=== PATIENT | female | born 1990 | race Hispanic/Latino ===

== ENCOUNTER 2016-05-27 14:57 | Inpatient (IN) | payer OTHER ==
[~2016-05-27] VITALS: Ht 160 cm; Wt 75.2 kg
[2016-05-27 16:26] LABS: MEAN CORPUSCULAR HEMOGLOBIN 29.3 pg (27.0-33.0); MEAN CORPUSCULAR HGB CONC 34.5 g/dl (32.0-36.5); MEAN CORPUSCULAR VOLUME 84.9 fl (80.0-96.0); RED CELL DISTRIBUTION WIDTH 13.5 % (11.5-14.5)
[2016-05-27 16:33] LABS: AMPHETAMINES LEVEL URINE NEGATIVE (NEGATIVE); BENZODIAZEPINES URINE NEGATIVE (NEGATIVE); COCAINE METABOLITE URINE NEGATIVE (NEGATIVE); CONTROL LINE INT CTR LINE PRESENT; METHADONE URINE NEGATIVE (NEGATIVE); OPIATES URINE NEGATIVE (NEGATIVE); TRICYCLIC ANTIDEPRESS URINE NEGATIVE (NEGATIVE)
[2016-05-27 16:34] LABS: CONTROL LINE HCG INT CTR LINE PRESENT
[2016-05-27 16:48] LABS: ALBUMIN 3.4 GM/DL (3.2-5.2); ALBUMIN/GLOBULIN RATIO 0.94 (1.00-1.93); ALKALINE PHOSPHATASE 62 U/L (45-117); ALT/SGPT 13 U/L (12-78); ANION GAP 10 MEQ/L (8-16); AST/SGOT 13 U/L (15-37); BILIRUBIN,DIRECT < 0.1 MG/DL (0.0-0.2); BILIRUBIN,TOTAL 0.2 MG/DL (0.2-1.0); BLOOD UREA NITROGEN 5 MG/DL (7-18); CARBON DIOXIDE LEVEL 23 MEQ/L (21-32); CHLORIDE LEVEL 107 MEQ/L (98-107); CREATININE FOR GFR 0.46 MG/DL (0.55-1.02); GLOMERULAR FILTRATION RATE > 60.0 (>60); GLUCOSE, FASTING 72 MG/DL (70-105); SODIUM LEVEL 140 MEQ/L (136-145)
[2016-05-27] MEDS ORDERED: ZOLO50TA PO (18:08)
[2016-05-27] MEDS ORDERED: UNIS25TA2 PO (18:08)
[2016-05-27] MEDS ORDERED: PRENTAB16 PO (18:08)
--- NOTE | 2016-05-27 18:10 | EDDOCDS ---
Nurse's Notes [facility] Name: Gina Taveras Age: 25 yrs Sex: Female : 1990 Arrival Date: 05/27/2016 Time: 14:[address] MD: Diagnosis: Major depressive disorder, single episode; state;Suicidal ideations Presentation: 05/27 15:13 Presenting complaint: Patient states: "You need to call the [place] and tell them mb9 what is going on. My is in the [employer] and needs to be brought home". When questioned as to why she is in the ER pt states, "I'm depressed and having SI". pt reports several plans. pt reports she has easy access to knives and that her is a knife boat fueler. pt reports a history of depression and a history of cutting in high school. pt appears to be laughing and joking in the room on the cell phone when security aide went in to change pt. Mental Health Triage Level: Level 2: The patient displays active suicidal ideations. Adult Sepsis Screening: The patient does not have new or worsening altered mentation. Patient's respiratory rate is less than 22. Systolic blood pressure is greater than 100. Patient has a qSOFA score of 0- Negative Sepsis Screen. Suicide/Homicide risk assessment- The patient admits to and/or has been reported to be having suicidal ideations. Status: The patient is a dependent. Transition of care: patient was received from a primary care office; . 15:13 Acuity: MARY Level 3 mb9 15:13 Method Of Arrival: Ambulance mb9 Triage Assessment: 15:13 General: Appears in no apparent distress, comfortable, Behavior is appropriate for age, mb9 cooperative. Pain: Denies pain. Pt Declines HIV testing. Respiratory: Airway is patent Respiratory effort is even, unlabored. 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 Zoloft 100 mg Oral tab 1 tab once daily 2. Vitamin Oral tab 1 tab once daily 3. sleep aide Unknown Unknown prn OTC medication - PMHx: Depression; Migraine Headaches; - PSHx: csection; - Social history: Smoking status: Patient states former smoker of tobacco. No barriers to communication noted, The patient speaks fluent Stateless. - Family history: No immediate family members are acutely ill. - : The pt / caregiver states he / she is not on anticoagulants. Home medication list is obtained from the patient. - Exposure Risk Screening:: None identified. Screenin:10 Screening information is obtained from the patient. Fall risk: At risk due to age. mb9 Assistance ADL's: requires no assistance with activities of daily living. Abuse/DV Screen: The patient / caregiver reports he/she is: not in a situation that causes fear, pain or injury. Nutritional screening: No deficits noted. Advance Directives: There is no active DNR order. home support is adequate. Assessment: 17:07 Reassessment: Patient appears in no apparent distress at this time. General: Appears in mb9 no apparent distress, Behavior is appropriate for age, cooperative. Respiratory: Airway is patent. Mental Health Eval: 16:27 Mental health consult is initiated at 16:00. Status: The patient is a ms dependent. [facility] Behavioral Health: The patient is not an established patient of [facility] Behavioral Health. Referral Information: Evaluation referral is generated by the patient's therapist Adrian ANGELA. The patient was referred for evaluation because Pt. states she came to ER because she is depressed and has been having suicidal thoughts. She denies having a plan to kill herself but states several plans have been going through her head. Pt. states that she is approx 15 weeks and has a two and three yr. old children at home, currently in car of her sister who resides with them. Pt. states that depression worsened and suicidal thoughts began after her left for training 5 days ago. She reports decreased sleep and appetite and states she has not been keeping up with the cooking and cleaning. Pt. reports that since she found out she was , the Zoloft she is prescribed has been decreased from 100 mg to 50 mg. She reports she has been taking Zoloft for about 2 years. Pt. reports history of self mutilation by cutting, most recently five days ago with superficial cuts made to right leg(above knee) with a razor blade. 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 She reports two suicide attempts as a teenager by taking Ibuprofen overdose.. Subjective: Delusions are denied. Patient's mood is anxious, Hallucinations are denied. Subjective: Pt. reports she is from [place], moved here with her spouse in November 2015. Mental Health history: anxiety, depression, Mental Health Admissions: MH admissions in [place] in August 2015 and another in early 2015 Current Outpatient Mental Health Services: Psychiatrist / Agency: [facility], pt. reports she has had one visit there. Patient presents to Emergency Department with the following symptoms within the past 2 weeks: anxiety, decreased appetite, depressed mood, sleep disturbance - insomnia, suicidal ideation with no plan. Substance abuse: Pt denies. Mental status exam: Patients appearance is appropriate, Patient's behavior is cooperative, Speech is normal. Affect is labile. Mood is anxious. Hallucinations are denied. Appetite is poor. Memory is good. Energy level is normal. Content of thought is normal. Thought process is intact. Cognitive level is oriented to person, place, time and situation Patient's insight is fair. Judgement is fair. Rapport with interviewer is good. Suicidal Ideation is present with no specific plan. Homicidal ideation is denied. 17:11 Disposition: Medically cleared for disposition by Daryl Henson MD Psychiatric Consult ms is performed by phone with Dr Angel Gallegos. [facility] Admission Criteria: The patient is experiencing suicidal ideation. The patient requires continuous observation and/or control to protect self, others or property. Legal Status: Patient's legal status will be Emergency admission: . 17:43 [place] Safe Act: [place] Safe Act is applicable to this patient. The patient poses a risk ms to self or other and the Nursing Internet Researcher has been notified. He/She will enter the patient's data. DSM-V Differential Diagnosis: Unspecified Depressive Disorder (F32.9). Insurance Pre-Certification: Not Required. Awaiting: transfer to [facility]. Vital Signs: 15:13 BP 131 / 82; Pulse 98; Resp 17; Temp 97.8; Pulse Ox 99% ; Pain 0/10; mb9 17:46 BP 115 / 59; Pulse 86; Resp 16; Temp 98.3(O); Pulse Ox 99% on R/A; Pain 0/10; sew Vitals: 15:13 Log In Time N/A - ambulance arrival. mb9 ED Course: 14:59 Patient visited by Warren Martínez, Reg. pm4 14:59 Patient moved to [facility] pm4 15:03 Patient moved to [facility] mb9 15:08 Daryl Henson MD is Attending Physician. br1 15:17 Triage Initiated mb9 15:21 Patient visited by Daryl Henson MD. br1 15:37 Pt greeted and oriented to ED. Patient advised of names of staff involved in care, sew location of call carballo, wait times and NPO status. Patient has correct armband on for positive identification. Placed in psych safe attire. Bed in low position. Call light in reach. Side rails up X 1. Security observing. Property removed, inventory done, secured in belongings bag- placed in locked locker. Placed in locker 2. secure belongings bag, Secure bag Number [id number], placed in ED safe. Verbal reassurance given. Psych Safety Check: Location: Psych Room. Visual Assessment: Cooperative. 15:38 Patient visited by Mirian Manley. sew 15:41 Patient visited by Mirian Manley. sew 15:41 Warm blanket given. Pillow given. sew 15:55 [facility] Payment Agreement was scanned into Coffee[employer] and attached to record. zo 16:05 Psych Safety Check: Location: Psych Room. Visual Assessment: Cooperative. sew 16:05 Acetaminophen Level Sent. sew 16:05 Basic Metabolic Profile Sent. sew 16:05 Complete Blood Count Sent. sew 16:05 Drug Eval Toxicology ED Only Sent. sew 16:05 Ethyl Alcohol (ethanol) Sent. sew 16:05 HCG,Serum Qualitative Sent. sew 16:05 Liver Profile Sent. sew 16:05 Salicylate Level Sent. sew 16:05 Thyroid Stimulating Hormone Sent. sew 16:05 Labs drawn. (by ED staff). Sent per order to lab. Urine collected. Clean catch sew specimen. Urine specimen sent to lab. 16:06 Patient visited by Mirian Manley. sew 16:34 Patient visited by Mirian Manley. sew 16:34 Psych Safety Check: Location: Psych Room. Visual Assessment: Sleeping. sew 17:07 Psych Safety Check: Location: Psych Room. Visual Assessment: Sleeping, Cooperative. mb9 17:10 Patient visited by Juan Craig RN. mb9 17:10 The patient / caregiver is instructed regarding the plan of care and ED course. mb9 17:10 No IV's were initiated during this patient's visit. No procedures done that require mb9 assistance. 17:18 Angel Gallegos is Hospitalizing Provider. br1 17:27 Other: [facility] Note was scanned into CoffeeTable and attached to record. jl 17:30 Patient visited by Mirian Manley. sew 17:30 Psych Safety Check: Location: Psych Room. Visual Assessment: Sleeping, Cooperative. sew 17:42 Patient visited by Mirian Manley. sew 17:42 Psych Safety Check: Location: Psych Room. Visual Assessment: Cooperative. sew 17:42 [facility] Legal paperwork was scanned into [employer] and attached to record. jl 17:47 Patient visited by Mirian Manley. sew 17:54 Patient visited by Mirian Manley. sew 17:54 Psych Safety Check: Location: Psych Room. Visual Assessment: Cooperative. sew Attachments: 17:42 [facility] Legal paperwork jl Order Results: Lab Order: Acetaminophen Level; SPEC'M 05/27/16 15:54 Test: ACETAMINOPHEN LEVEL; Value: < 2.0; Range: 10.0-30.0; Abnormal: Below low normal; Units: UG/ML; Status: F Lab Order: Basic Metabolic Profile; SPEC'M 05/27/16 15:54 Test: GLUCOSE, FASTING; Value: 72; Range: 70-105; Units: MG/DL; Status: F Test: BLOOD UREA NITROGEN; Value: 5; Range: 7-18; Abnormal: Below low normal; Units: MG/DL; Status: F Test: CREATININE FOR GFR; Value: 0.46; Range: 0.55-1.02; Abnormal: Below low normal; Units: MG/DL; Status: F Test: SODIUM LEVEL; Range: 136-145; Units: MEQ/L; Status: I Test: POTASSIUM SERUM; Range: 3.5-5.1; Units: MEQ/L; Status: I Test: CHLORIDE LEVEL; Range: 98-107; Units: MEQ/L; Status: I Test: CARBON DIOXIDE LEVEL; Range: 21-32; Units: MEQ/L; Status: I Test: ANION GAP; Range: 8-16; Units: MEQ/L; Status: I Test: CALCIUM LEVEL; Range: 8.5-10.1; Units: MG/DL; Status: I Test: GLOMERULAR FILTRATION RATE; Value: > 60.0; Range: >60; Status: F Test: SODIUM LEVEL; Value: 140; Range: 136-145; Units: MEQ/L; Status: F Test: POTASSIUM SERUM; Value: 4.0; Range: 3.5-5.1; Units: MEQ/L; Status: F Test: CHLORIDE LEVEL; Value: 107; Range: 98-107; Units: MEQ/L; Status: F Test: CARBON DIOXIDE LEVEL; Value: 23; Range: 21-32; Units: MEQ/L; Status: F Test: ANION GAP; Value: 10; Range: 8-16; Units: MEQ/L; Status: F Test: CALCIUM LEVEL; Value: 9.0; Range: 8.5-10.1; Units: MG/DL; Status: F Test Note: ; Units are mL/min/1.73 m2 Chronic Kidney Disease Staging per NKF: Stage I & II GFR >=60 Normal to Mildly Decreased Stage III GFR 30-59 Moderately Decreased Stage IV GFR 15-29 Severely Decreased Stage V GFR <15 Very Little GFR Left ESRD GFR <15 on DESIGN ENGINE[employer]ODU[employer] Lab Order: Complete Blood Count; SPEC'M 05/27/16 15:54 Test: WHITE BLOOD COUNT; Value: 11.0; Range: 4.0-10.0; Abnormal: Above high normal; Units: K/mm3; Status: F Test: RED BLOOD COUNT; Value: 4.42; Range: 4.00-5.40; Units: M/mm3; Status: F Test: HEMOGLOBIN; Value: 13.0; Range: 12.0-16.0; Units: g/dl; Status: F Test: HEMATOCRIT; Value: 37.5; Range: 36.0-47.0; Units: %; Status: F Test: MEAN CORPUSCULAR VOLUME; Value: 84.9; Range: 80.0-96.0; Units: fl; Status: F Test: MEAN CORPUSCULAR HEMOGLOBIN; Value: 29.3; Range: 27.0-33.0; Units: pg; Status: F Test: MEAN CORPUSCULAR HGB CONC; Value: 34.5; Range: 32.0-36.5; Units: g/dl; Status: F Test: RED CELL DISTRIBUTION WIDTH; Value: 13.5; Range: 11.5-14.5; Units: %; Status: F Test: PLATELET COUNT, AUTOMATED; Value: 197; Range: 150-450; Units: k/mm3; Status: F Lab Order: Drug Eval Toxicology ED Only; SPEC'M 05/27/16 15:43 Test: AMPHETAMINES LEVEL URINE; Value: NEGATIVE; Range: NEGATIVE; Status: F Test: BARBITURATES URINE; Value: NEGATIVE; Range: NEGATIVE; Status: F Test: BENZODIAZEPINES URINE; Value: NEGATIVE; Range: NEGATIVE; Status: F Test: CANNABINOIDS URINE; Value: NEGATIVE; Range: NEGATIVE; Status: F Test: COCAINE METABOLITE URINE; Value: NEGATIVE; Range: NEGATIVE; Status: F Test: METHADONE URINE; Value: NEGATIVE; Range: NEGATIVE; Status: F Test: OPIATES URINE; Value: NEGATIVE; Range: NEGATIVE; Status: F Test: TRICYCLIC ANTIDEPRESS URINE; Value: NEGATIVE; Range: NEGATIVE; Status: F Test Note: ; ALL PRESUMPTIVE POSITIVE FINDINGS ARE UNCONFIRMED NORMAL VALUES THRESHOLD IN NG/ML AMPHETAMINES 1000 METHAMPHETAMINES 1000 BARBITURATES 300 BENZODIAZEPINES 300 CANNABINOIDS (THC) 50 COCAINE METABOLITE 300 METHADONE 300 OPIATES 300 PHENCYCLIDINE 25 TRICYCLIC ANTIDEPRESSANTS 1000 RESULTS ARE FOR MEDICAL PURPOSES ONLY. ALL URINE SPECIMENS WILL BE SAVED FOR 3 DAYS. IF CONFIRMATION OF A PRESUMPTIVE POSTIVE SCREEN RESULT IS DESIRED, CALL CHEMISTRY ([phone]) AND REQUEST URINE TO BE SENT TO REFERENCE LAB. FOR A LIST OF CLOSELY RELATED COMPOUNDS PLEASE CALL THE LAB. Lab Order: Ethyl Alcohol (ethanol); SPEC'M 05/27/16 15:54 Test: ETHYL ALCOHOL (ETHANOL); Value: < 0.003; Range: 0.000-0.010; Units: %; Status: F Lab Order: HCG,Serum Qualitative; SPEC'M 05/27/16 15:54 Test: HCG, SERUM QUALITATIVE; Value: POSITIVE; Range: NEGATIVE; Abnormal: Abnormal; Status: F Lab Order: Liver Profile; SPEC'M 05/27/16 15:54 Test: AST/SGOT; Value: 13; Range: 15-37; Abnormal: Below low normal; Units: U/L; Status: F Test: ALT/SGPT; Value: 13; Range: 12-78; Units: U/L; Status: F Test: ALKALINE PHOSPHATASE; Value: 62; Range: 45-117; Units: U/L; Status: F Test: BILIRUBIN,TOTAL; Value: 0.2; Range: 0.2-1.0; Units: MG/DL; Status: F Test: BILIRUBIN,DIRECT; Value: < 0.1; Range: 0.0-0.2; Units: MG/DL; Status: F Test: TOTAL PROTEIN; Value: 7.0; Range: 6.4-8.2; Units: GM/DL; Status: F Test: ALBUMIN; Value: 3.4; Range: 3.2-5.2; Units: GM/DL; Status: F Test: ALBUMIN/GLOBULIN RATIO; Value: 0.94; Range: 1.00-1.93; Abnormal: Below low normal; Status: F Lab Order: Salicylate Level; SPEC'M 05/27/16 15:54 Test: SALICYLATE LEVEL; Value: < 1.7; Range: 5.0-30.0; Abnormal: Below low normal; Units: MG/DL; Status: F Lab Order: Thyroid Stimulating Hormone; SPEC'M 05/27/16 15:54 Test: THYROID STIMULATING HORMONE; Value: 0.995; Range: 0.358-3.740; Units: uIU/ML; Status: F Outcome: 17:18 Decision to Hospitalize by Provider. br1 18:08 Discharge Assessment: Patient awake, alert and oriented x 3. No cognitive and/or mb9 functional deficits noted. Patient verbalized understanding of disposition instructions. patient administered narcotics - no. The following High Risk Discharge criteria are identified: None. Admitted to Psych accompanied by tech. Condition: good Condition: stable Condition: improved. No special radiology studies were completed. 18:09 Patient left the ED. mb9 Signatures: Willard Perales, PSA PSA Bee Baugh, PSA PSA Arnel Miller Brian, MD MD br1 Mirian Manley Michael, RN RN mb9 Warren Martínez, Reg Reg pm4 Corrections: (The following items were deleted from the chart) 17:14 16:27 Referral Information: Evaluation referral is generated by the patient himself / ms herself. The patient was referred for evaluation because Pt. states she came to ER because she is depressed and has been having suicidal thoughts. She denies having a plan to kill herself but states several plans have been going through her head. Pt. states that she is approx 15 weeks and has a two and three yr. old children at home, currently in car of her sister who resides with them. Pt. states that depression worsened and suicidal thoughts began after her left for training 5 days ago. She reports decreased sleep and appetite and states she has not been keeping up with the cooking and cleaning. Pt. reports that since she found out she was , the Zoloft she is prescribed has been decreased from 100 mg to 50 mg. She reports she has been taking Zoloft for about 2 years. Pt. reports history of self mutilation by cutting, most recently five days ago with superficial cuts made to right leg(above knee) with a razor blade. 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 She reports two suicide attempts as a teenager by taking Ibuprofen overdose.. ms MTDD
--- NOTE | 2016-05-27 18:10 | EDDOCDS ---
Physician Documentation [facility] Name: Gina Taveras Age: 25 yrs Sex: Female : 1990 Arrival Date: 05/27/2016 Time: 14:57 Bed [facility] Private MD: Disposition: 05/27/16 17:18 Hospitalization ordered by Angel Gallegos for Inpatient Admission. Preliminary diagnosis are Major depressive disorder, single episode, state, Suicidal ideations. - Bed requested for Admit. - Status is Inpatient Admission. mb9 - Condition is Stable. - Problem is new. - Symptoms are unchanged. Historical: - Allergies: No known drug Allergies; - Home Meds: 1. Zoloft 100 mg Oral tab 1 tab once daily 2. Vitamin Oral tab 1 tab once daily 3. sleep aide Unknown Unknown prn OTC medication - PMHx: Depression; Migraine Headaches; - PSHx: csection; - Social history: Smoking status: Patient states former smoker of tobacco. No barriers to communication noted, The patient speaks fluent Uzbek. - Family history: No immediate family members are acutely ill. - : The pt / caregiver states he / she is not on anticoagulants. Home medication list is obtained from the patient. - Exposure Risk Screening:: None identified. 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 br1 15:21 Consult PFS/PSA/Blasting Machine Operator: Patient's case requires discussion with on-call br1 Psychiatrist ordered. 15:21 PSA/PFS to call Nursing Appraiser Personal Property, to enter patient data on [place] Safe Act if patient br1 involuntarily admitted or transferred for SI or HI ordered. 15:21 Confirm accurate psychiatric medication list and times of last dosage ordered. br1 15:21 Detain Pt Until Medically/PFS Cleared ordered. br1 15:21 REGULAR DIET PLASTIC CASTILLO+DIET ordered. EDMS 15:21 Acetaminophen Level Ordered. EDMS 15:21 Basic Metabolic Profile Ordered. EDMS 15:21 Complete Blood Count Ordered. EDMS 15:21 Drug Eval Toxicology ED Only Ordered. EDMS 15:21 Ethyl Alcohol (ethanol) Ordered. EDMS 15:22 HCG,Serum Qualitative Ordered. EDMS 15:22 Liver Profile Ordered. EDMS 15:22 Salicylate Level Ordered. EDMS 15:22 Thyroid Stimulating Hormone Ordered. EDMS 15:50 Financial registration complete. zo 15:51 Consult PFS/PSA/Blasting Machine Operator complete. ms 15:51 Consult PFS/PSA/Blasting Machine Operator: Patient's case requires discussion with on-call ms Psychiatrist complete. 15:51 PSA/PFS to call Nursing Appraiser Personal Property, to enter patient data on [facility] Safe Act if patient ms involuntarily admitted or transferred for SI or HI complete. 15:55 [facility] Payment Agreement was scanned into [email or web address] and attached to record. zo 16:52 Acetaminophen Level Reviewed. br1 16:52 Basic Metabolic Profile Reviewed. br1 16:52 Complete Blood Count Reviewed. br1 16:52 HCG,Serum Qualitative Reviewed. br1 16:52 Liver Profile Reviewed. br1 16:52 Salicylate Level Reviewed. br1 16:52 Drug Eval Toxicology ED Only Reviewed. br1 16:52 Ethyl Alcohol (ethanol) Reviewed. br1 16:52 Thyroid Stimulating Hormone Reviewed. br1 16:53 Consult PFS/PSA/Socail Worker: Cleared medically for eval ordered. br1 16:58 Consult PFS/PSA/Socail Worker: Cleared medically for eval complete. ms 17:27 Other: [facility] Note was scanned into [employer] and attached to record. jl 17:42 [facility] Legal paperwork was scanned into [email or web address] and attached to record. jl 17:42 Admit to IMHU: ordered. EDMS 17:45 REGULAR DIET ordered. EDMS Signatures: Dispatcher [employer] EDMS Diaz, Willard, PSA PSA viktoriya Aburto, Bee, PSA PSA ms Arnel Terry Brian, MD MD br1 Juan Craig RN RN mb9 The chart was reviewed and I authenticate all verbal orders and agree with the evaluation and treatment provided.Attachments: 15:55 [facility] Payment Agreement zo MTDD
[2016-05-27] MEDS: SERTRALINE HCL 50 MG TAB PO SCH (22:08)
[2016-05-27] MEDS: PRENATAL VITAMIN TAB PO SCH (22:08)
[2016-05-28 06:22] VITALS: BP 118/69
--- NOTE | 2016-05-28 10:47 | HPEPDOC ---
Medical History and Physical Date of Admission May 27, 2016 at 17:37 History and Physical PCP: Rose Mary ATTENDING: Dr. Vaughn Lee HPI: 25yoF admitted to COUNTS INCLUDE 234 BEDS AT THE [facility] for unspecified depressive disorder, being medically examined today. Patient is currently 15 weeks . He is followed by Augusta UNIFORM ROOM ATTENDANT. She currently has no complaints or concerns. She states she has been feeling well. Eating and drinking well. No nausea or vomiting. Denies any fevers, chills, weakness, fatigue, [place], CP, SOB, cough, palpitations, abdominal pain, N/V/D or changes in bowel or bladder habits. PMHx: Depression History of self-mutilation Migraine headache Insomnia PSHX: SOCHX: Resides in: [facility] Marital Status: Kids: 2 Employment: Unemployed Tobacco use: Quit 03/01 ETOH: Denies Illicit Drugs: Marijuana in teens IV Drug Use: Denies Tattoos done unprofessionally: Denies FAMHX: Mother: Alive, depression Father: Alive, well Siblings: Alive, history of benign brain tumor Children: Alive, well Unexpected deaths due to medical reasons: None. ROS: As noted in HPI, otherwise 11pt ROS of systems reviewed and remarkable for LMP /16. Pt states 15 wk , following with Nilson UNIFORM ROOM ATTENDANT. PE: GEN: 25yoF, appears stated age. Well-nourished, well developed. No acute distress. Alert and oriented x 3. Pleasant, interactive. HEENT: Normocephalic, atraumatic. Pupils are equal, round, and reactive to light. Extraocular movements are intact. No nystagmus appreciated. Sclera are nonicteric. Conjunctiva without injection. Nose midline. Nasal turbinates without bogginess. EACs both patent BL. TMs both visualized and mac with good cone of light, no bulging or erythema. No facial asymmetry. Moist mucous membranes. Dentition fair. Pharynx pink and moist, no cobblestoning. Neck supple , trachea midline. No lymphadenopathy or thyromegaly appreciated. CHEST: Regular rate and rhythm, +S1, +S2 LUNGS: Clear to auscultation bilaterally. No wheezes, rales, or rhonchi. Breathing appears symmetric and easy. Patient is speaking in full sentences. No accessory muscle use. ABD: Round, soft, non-tender, non-distended. +Bowel sounds throughout. No rebound or guarding. No costovertebral angle tenderness. EXT: Pulses 2+ bilaterally dorsalis pedis and radial. No lower extremity edema appreciated. SKIN: [place], dry, warm. Capillary refill <2sec. No rashes. NEURO: Alert and oriented x 3. Cranial nerves III-XII are intact. No focal deficits appreciated. EKG: pending. A&P: 25yoF admitted to COUNTS INCLUDE 234 BEDS AT THE [facility] for unspecified depressive disorder 1. Psych. Plan per Psychiatry. Obtain baseline EKG to assure the safety of psychiatric medications as they can prolong the QT interval. 2. . Continue vitamin. Continue follow-up with Raghav Devine OB/ MACHINE PAN GREASER. 3. History of Migraine headache. Tylenol as needed. 4. Follow up with PCP on discharge. Rose Mary. 5. Leukocytosis. Patient is afebrile. Asymptomatic. Recheck CBC. 6. Staff member present throughout exam MOISE Thibodeaux. Vital Signs Vital Signs Label Value Date Time Patient Temperature 97.0 degrees F 05/28/16621 Temperature Source Tympanic 05/28/16 06 Pulse 105 05/28/16 06 Respiratory Rate 20 bpm 05/28/16 0622 Blood Pressure Assessment 118/69 (85) 05/28/16 0622 Laboratory Data Labs 24H Laboratory Tests 2 05/27/16 15:43: Urine Amphetamine Level NEGATIVE, Urine Benzodiazepines Screen NEGATIVE, Urine Cannabinoids NEGATIVE, Urine Cocaine Metabolite NEGATIVE, Urine Opiates Screen NEGATIVE, Urine Barbiturates, Qualitative NEGATIVE, Urine Methadone Screen NEGATIVE, Urine Tricyclic Antidepressants NEGATIVE 05/27/16 15:54: Acetaminophen Level < 2.0L, Aspartate Amino Transf (AST/SGOT) 13L, Alanine Aminotransferase (ALT/SGPT) 13, Alkaline Phosphatase 62, Total Bilirubin 0.2, Direct Bilirubin < 0.1, Albumin 3.4, Albumin/Globulin Ratio 0.94L, Anion Gap 10 , Calcium Level 9.0, Ethyl Alcohol Level < 0.003, Glomerular Filtration Rate > 60.0, Human Chorionic Gonadotropin, Qual POSITIVEA, Salicylates Level < 1.7L, Thyroid Stimulating Hormone (TSH) 0.995, Total Protein 7.0 CBC/BMP Laboratory Tests 05/27/16 15:54 Red Blood Count 4.42, Mean Corpuscular Volume 84.9, Mean Corpuscular Hemoglobin 29.3, Mean Corpuscular Hemoglobin Concent 34.5, Red Cell Distribution Width 13.5 Home Medications Scheduled Multivitamins/ ( Complete 14-0.4 mg) 1 Tab Tab 1 TAB PO QHS Sertraline Hcl (Zoloft) 50 Mg Tab 50 MG PO QHS Scheduled PRN (Unisom) 25 Mg Tab 25 MG PO QHS PRN PRN SLEEP Allergies Coded Allergies: No Known Allergies (Unverified , 05/27/16) Iva Rueda May 28, 2016 10:47 Iva Rueda May 28, 2016 10:47
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
[2016-05-28 18:00] VITALS: BP 119/65
[2016-05-28] MEDS: SERTRALINE HCL 50 MG TAB PO SCH (20:29)
[2016-05-28] MEDS: PRENATAL VITAMIN TAB PO SCH (20:29)
[2016-05-29 06:16] VITALS: BP 138/63
[2016-05-29 06:58] LABS: MEAN CORPUSCULAR HEMOGLOBIN 30.7 pg (27.0-33.0); MEAN CORPUSCULAR HGB CONC 34.7 g/dl (32.0-36.5); MEAN CORPUSCULAR VOLUME 88.4 fl (80.0-96.0); RED CELL DISTRIBUTION WIDTH 12.9 % (11.5-14.5); WHITE BLOOD COUNT 10.9 K/mm3 (4.0-10.0)
--- NOTE | 2016-05-29 09:47 | ECGEPIP ---
Stationary ECG Study [facility] Test Date: 2016-05-28 Pat Name: BECKY TABOR Department: Room: [place] [address] Gender: F Stock Buyer: SIA : 1990 Requested By: Iva Rueda Order Number: [id number] Reading MD: Vaughn Lee Measurements Intervals [place] Rate: 99 P: 45 NE: 131 QRS: 62 QRSD: 102 T: 35 QT: 344 QTc: 442 Interpretive Statements SINUS RHYTHM Comparison tracing not on file Electronically Signed On 05-29-2016 9:47:21 EST by Vaughn Lee
[2016-05-29] MEDS: ACETAMINOPHEN TAB 650MG DOSE (2X325MG) PO PRN ×2 (11:39→19:15)
--- NOTE | 2016-05-29 16:28 | IPNPDOC ---
[facility] Progress Note Progress Note DATE OF SERVICE: 05/29/16 HISTORY OF THE PRESENT ILLNESS: Patient was seen today to assess treatment progress on inpatient unit. Patient was observed to be sleeping in bed between groups but was easily roused and sat up on the side of bed to meet with sba underwriter. Patient reports reduced symptoms of anxiety and depression denies audiovisual hallucinations, denies suicidal and homicidal ideation, denies urge to engage in self-injurious behavior. Pocket Grinder Operator inquired as to discharge plans to which patient responded by stating she plans to discharge to home with children. When asked about removing knives from home prior to discharge patient stated "I don' t know." Patient indicates she has been in contact with her sister and her children, denies safety concerns related to children sister's care. Patient was asked to consider ways to discharge which would not put her at risk of being able to care for herself, her unborn child, or her children prior to her coming home from [facility]. Patient indicates she has been attending groups and finds them helpful, spends time in her room when not in groups. Patient indicates she is sleeping fine, denies nightmares, denies physical pain, notes appetite has improved and she has been eating regularly and adequately. Patient continues to take Zoloft 50 mg po q hs and states medication is working well, denies need for dosing adjustment, denies medication side effects. Patient makes no request for [facility] to be contacted to arrange 's return home today. 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 Patient began taking Zoloft approximately 2 years ago and states had been taking 100 mg po q hs until discovering she is , notes she and PCM agreed to dose reduction to 50 mg po q hs. Patient indicates she wants to continue taking medication. Potential risks and side effects of taking psychotropic medication while were again reviewed with patient who verbalizes understanding and notes she has also discussed potential risks with PCM who is prescriber and OB/ ASSOCIATE EMBALMER/FUNERAL DIRECTOR. Addendum: Pocket Grinder Operator contacted patient's PCM, Capt. Tran ([phone]), on the [facility], who verified the patient is currently being prescribed Zoloft 50 mg po q hs by him, had been taking 100 mg po q hs intermittently with good effect prior to discovering she was . Capt. Tran indicated the patient was also offered Prozac which she declined. Capt. Tran indicated he is in agreement with patient taking Zoloft and stated he has "absolutely no problem" with Zoloft dose increase to 100 mg po q hs if needed/desired by patient. Capt. Tran was made aware of the events which led to patient's current hospitalization and was also informed of patient's request for the [facility] to be contacted for her to be returned from [facility]. Capt. Tran indicated that soldiers are generally recalled from [facility] "only in dire situations." VITAL SIGNS: See below LABORATORY DATA: Results from WBCs remain elevated. PA is addressing, patient is asymptomatic. RBC, Hgb, HCT low. On admission elevated WBCs. Low BUN, creatinine , AST, albumin/globulin ratio. UDS negative on admission. HCG positive, patient reports she is 15 weeks . EKG 05/28/16 SINUS RHYTHM MENTAL STATUS EXAMINATION: Patient is a 25-year old female, who is pleasant, cooperative, disheveled dressed in hospital clothing, appears stated age who presents with childlike manner Speech: Is normal rate, rhythm, volume, mild rambling at times when talking about and children Thought processes: Clear, generally goal-directed Rate of thoughts: Within normal limits. Thought content: Logical, denies suicidal and homicidal ideation, denies audiovisual hallucinations and other psychotic symptoms, denies obsessions and compulsions Abstract reasoning: Appears limited Associations: Intact. Abnormal or psychotic thoughts: Lisa hallucinations, Delusions, Preoccupation with violence, Homicidal or suicidal ideation, and Obsessions. Judgment: Poor Insight: Poor Oriented to: Time, place and person. Recent and Remote Memory: Intact. Attention Span and Concentration: Fair. Language: Normal. Fund of knowledge: Adequate. 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 Patient remains superficially bright and engages with sba underwriter on superficial level, minimizes events which led to her current hospitalization. Patient indicates medication remains effective and denies need for dosing adjustment, further denies medication side effects. Patient remains childlike in interactional style and continues to display lack of insight. Patient has begun attending some groups, indicates she is comfortable on the unit, and is able to effectively engage in the safety planning process and verbalizes awareness of how to access supportive services on the unit if needed. Will continue Zoloft at current dose to address symptoms of anxiety and depression and will continue to monitor for medication effectiveness, side effects, and need for dosing adjustment. Patient reiterates discharge plan is to return to home where she lives with her children and her , adds she intends to return to [facility] and MILL CRANE OPERATOR and outpatient behavioral health for ongoing psychotherapy and medication management services. Will continue to observe patient on inpatient unit to ensure positive response to medication, patient safety, and patient's readiness for discharge. Discharge coordination will involve patient and support system to evaluate plausibility of discharge plan and to devise plan which will provide adequate support to patient and family. DIAGNOSES: Major depressive disorder, recurrent, moderate, Rule out pervasive developmental disorder, rule out intellectual disorder. depression by history MANAGEMENT PLAN: Continue Zoloft 50 mg po q am, continue to evaluate need for dose increase Consult with PCM - completed 05/29/16 Maintain safety precautions Patient to attend groups and participate in unit programming to develop coping strategies Engage patient in discharge planning process and arrange meeting with command to evaluate safe discharge planning when appropriate Patient to follow up with [place] PCM and MILL CRANE OPERATOR upon discharge Vital Signs/I&O Vital Signs Date Time Temp Pulse Resp B/P Pulse Ox O2 Delivery O2 Flow Rate FiO2 05/29/16 06:16 96.4 78 18 138/63 05/27/16 18:15 99 Room Air Laboratory Data CBC/BMP Laboratory Tests 05/29/16 06:17 Red Blood Count 3.77 L, Mean Corpuscular Volume 88.4, Mean Corpuscular Hemoglobin 30.7, Mean Corpuscular Hemoglobin Concent 34.7, Red Cell Distribution Width 12.9 Current Medications Current Medications Acetaminophen (Tylenol) 650 mg Q6HP PRN PO HEADACHE or DISCOMFORT Last administered on 05/29/16t 11:39; Start 05/27/16 at 19:00; Stop 06/26/16 at 18:59 Home Med (Med Rec Complete!) ASDIRECTED XX ; Start 05/27/16 at 18:15; Stop 04/02 at 18:15; Status DC Prenat Multivit/ [place]/Iron/Folic Ac ( Rx) 1 tab QPM PO Last administered on 05/28/16 20:29; Start 05/27/16 at 21:00; Stop 06/26/16 at 20:59 Sertraline HCl (Zoloft) 50 mg QHS PO Last administered on 05/28/16 20:29; Start 05/27/16 at 21:00; Stop 06/26/16 at 20:59 Allergies Coded Allergies: No Known Allergies (Unverified , 05/27/16) Lisa Loco May 29, 2016 16:28 Allergies Coded Allergies: No Known Allergies (Unverified , 05/27/16) Lisa Loco May 29, 2016 16:28
[2016-05-29 18:00] VITALS: BP 107/56
--- NOTE | 2016-05-29 19:10 | EDDOCDS ---
Physician Documentation [facility] Name: Gina Taveras Age: 25 yrs Sex: Female : 1990 Arrival Date: 05/27/2016 Time: 14:[address] [facility] Private MD: Disposition: 05/27/16 17:18 Hospitalization ordered by Angel Gallegos for Inpatient Admission. Preliminary diagnosis are Major depressive disorder, single episode, state, Suicidal ideations. - Bed requested for Admit. - Status is Inpatient Admission. mb9 - Condition is Stable. - Problem is new. - Symptoms are unchanged. Historical: - Allergies: No known drug Allergies; - Home Meds: 1. Zoloft 100 mg Oral tab 1 tab once daily 2. Vitamin Oral tab 1 tab once daily 3. sleep aide Unknown Unknown prn OTC medication - PMHx: Depression; Migraine Headaches; - PSHx: csection; - Social history: Smoking status: Patient states former smoker of tobacco. No barriers to communication noted, The patient speaks fluent Pashto. - Family history: No immediate family members are acutely ill. - : The pt / caregiver states he / she is not on anticoagulants. Home medication list is obtained from the patient. - Exposure Risk Screening:: None identified. MAGNET VALVE ASSEMBLER: 05/27 15:30 LMP 12/2015 mb9 Vital Signs: 15:13 BP 131 / 82; Pulse 98; Resp 17; Temp 97.8; Pulse Ox 99% ; Pain 0/10; mb9 17:46 BP 115 / 59; Pulse 86; Resp 16; Temp 98.3(O); Pulse Ox 99% on R/A; Pain 0/10; sew MDM: 15:21 Consult PFS/PSA/Inspector Of Weights And Measures ordered. br1 15:21 Consult PFS/PSA/Inspector Of Weights And Measures: Patient's case requires discussion with on-call br1 Psychiatrist ordered. 15:21 PSA/PFS to call Nursing Fruit I Farmworker, to enter patient data on [place] Safe Act if patient br1 involuntarily admitted or transferred for SI or HI ordered. 15:21 Confirm accurate psychiatric medication list and times of last dosage ordered. br1 15:21 Detain Pt Until Medically/PFS Cleared ordered. br1 15:21 REGULAR DIET PLASTIC CASTILLO+DIET ordered. EDMS 15:21 Acetaminophen Level Ordered. EDMS 15:21 Basic Metabolic Profile Ordered. EDMS 15:21 Complete Blood Count Ordered. EDMS 15:21 Drug Eval Toxicology ED Only Ordered. EDMS 15:21 Ethyl Alcohol (ethanol) Ordered. EDMS 15:22 HCG,Serum Qualitative Ordered. EDMS 15:22 Liver Profile Ordered. EDMS 15:22 Salicylate Level Ordered. EDMS 15:22 Thyroid Stimulating Hormone Ordered. EDMS 15:50 Financial registration complete. zo 15:51 Consult PFS/PSA/Inspector Of Weights And Measures complete. ms 15:51 Consult PFS/PSA/Inspector Of Weights And Measures: Patient's case requires discussion with on-call ms Psychiatrist complete. 15:51 PSA/PFS to call Nursing Fruit I Farmworker, to enter patient data on [facility] Safe Act if patient ms involuntarily admitted or transferred for SI or HI complete. 15:55 [facility] Payment Agreement was scanned into [employer] and attached to record. zo 16:52 Acetaminophen Level Reviewed. br1 16:52 Basic Metabolic Profile Reviewed. br1 16:52 Complete Blood Count Reviewed. br1 16:52 HCG,Serum Qualitative Reviewed. br1 16:52 Liver Profile Reviewed. br1 16:52 Salicylate Level Reviewed. br1 16:52 Drug Eval Toxicology ED Only Reviewed. br1 16:52 Ethyl Alcohol (ethanol) Reviewed. br1 16:52 Thyroid Stimulating Hormone Reviewed. br1 16:53 Consult PFS/PSA/Socail Worker: Cleared medically for eval ordered. br1 16:58 Consult PFS/PSA/Socail Worker: Cleared medically for eval complete. ms 17:27 Other: [facility] Note was scanned into [employer] and attached to record. jl 17:42 [facility] Legal paperwork was scanned into [employer] and attached to record. jl 17:42 Admit to [facility]: ordered. EDMS 17:45 REGULAR DIET ordered. EDMS 05/28 08:59 T-Sheet-- Draft Copy was scanned into [employer] and attached to record. gb 09:00 PCR was scanned into [employer] and attached to record. gb Signatures: Dispatcher [employer] EDMS Willard Perales, PSA PSA Bee Baugh, PSA PSA ms Tracy, Mya, Reg Reg gb Harrison, Daryl Vann MD MD br1 Juan CraigRN RN mb9 The chart was reviewed and I authenticate all verbal orders and agree with the evaluation and treatment provided.Attachments: 05/27 15:55 [facility] Payment Agreement zo 05/28 08:59 T-Sheet-- Draft Copy gb Chart Complete MTDD
--- NOTE | 2016-05-29 19:10 | EDDOCDS ---
Nurse's Notes [facility] Name: Gina Taveras Age: 25 yrs Sex: Female : 1990 Arrival Date: 05/27/2016 Time: 14:[address] MD: Diagnosis: Major depressive disorder, single episode; state;Suicidal ideations Presentation: 05/27 15:13 Presenting complaint: Patient states: "You need to call the [facility] and tell them mb9 what is going on. My is in the [employer] and needs to be brought home". When questioned as to why she is in the ER pt states, "I'm depressed and having SI". pt reports several plans. pt reports she has easy access to knives and that her is a knife consulting solution director. pt reports a history of depression and a history of cutting in high school. pt appears to be laughing and joking in the room on the cell phone when security aide went in to change pt. Mental Health Triage Level: Level 2: The patient displays active suicidal ideations. Adult Sepsis Screening: The patient does not have new or worsening altered mentation. Patient's respiratory rate is less than 22. Systolic blood pressure is greater than 100. Patient has a qSOFA score of 0- Negative Sepsis Screen. Suicide/Homicide risk assessment- The patient admits to and/or has been reported to be having suicidal ideations. Status: The patient is a dependent. Transition of care: patient was received from a primary care office; . 15:13 Acuity: MARY Level 3 mb9 15:13 Method Of Arrival: Ambulance mb9 Triage Assessment: 15:13 General: Appears in no apparent distress, comfortable, Behavior is appropriate for age, mb9 cooperative. Pain: Denies pain. Pt Declines HIV testing. Respiratory: Airway is patent Respiratory effort is even, unlabored. 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 Zoloft 100 mg Oral tab 1 tab once daily 2. Vitamin Oral tab 1 tab once daily 3. sleep aide Unknown Unknown prn OTC medication - PMHx: Depression; Migraine Headaches; - PSHx: csection; - Social history: Smoking status: Patient states former smoker of tobacco. No barriers to communication noted, The patient speaks fluent Marshallese. - Family history: No immediate family members are acutely ill. - : The pt / caregiver states he / she is not on anticoagulants. Home medication list is obtained from the patient. - Exposure Risk Screening:: None identified. Screenin:10 Screening information is obtained from the patient. Fall risk: At risk due to age. mb9 Assistance ADL's: requires no assistance with activities of daily living. Abuse/DV Screen: The patient / caregiver reports he/she is: not in a situation that causes fear, pain or injury. Nutritional screening: No deficits noted. Advance Directives: There is no active DNR order. home support is adequate. Assessment: 17:07 Reassessment: Patient appears in no apparent distress at this time. General: Appears in mb9 no apparent distress, Behavior is appropriate for age, cooperative. Respiratory: Airway is patent. Mental Health Eval: 16:27 Mental health consult is initiated at 16:00. Status: The patient is a ms dependent. [facility] Behavioral Health: The patient is not an established patient of [facility] Behavioral Health. Referral Information: Evaluation referral is generated by the patient's therapist Adrian ANGELA. The patient was referred for evaluation because Pt. states she came to ER because she is depressed and has been having suicidal thoughts. She denies having a plan to kill herself but states several plans have been going through her head. Pt. states that she is approx 15 weeks and has a two and three yr. old children at home, currently in car of her sister who resides with them. Pt. states that depression worsened and suicidal thoughts began after her left for training 5 days ago. She reports decreased sleep and appetite and states she has not been keeping up with the cooking and cleaning. Pt. reports that since she found out she was , the Zoloft she is prescribed has been decreased from 100 mg to 50 mg. She reports she has been taking Zoloft for about 2 years. Pt. reports history of self mutilation by cutting, most recently five days ago with superficial cuts made to right leg(above knee) with a razor blade. 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 She reports two suicide attempts as a teenager by taking Ibuprofen overdose.. Subjective: Delusions are denied. Patient's mood is anxious, Hallucinations are denied. Subjective: Pt. reports she is from [place], moved here with her spouse in November 2015. Mental Health history: anxiety, depression, Mental Health Admissions: MH admissions in [place] in August 2015 and another in early 2015 Current Outpatient Mental Health Services: Psychiatrist / Agency: [facility], pt. reports she has had one visit there. Patient presents to Emergency Department with the following symptoms within the past 2 weeks: anxiety, decreased appetite, depressed mood, sleep disturbance - insomnia, suicidal ideation with no plan. Substance abuse: Pt denies. Mental status exam: Patients appearance is appropriate, Patient's behavior is cooperative, Speech is normal. Affect is labile. Mood is anxious. Hallucinations are denied. Appetite is poor. Memory is good. Energy level is normal. Content of thought is normal. Thought process is intact. Cognitive level is oriented to person, place, time and situation Patient's insight is fair. Judgement is fair. Rapport with interviewer is good. Suicidal Ideation is present with no specific plan. Homicidal ideation is denied. 17:11 Disposition: Medically cleared for disposition by Daryl Henson MD Psychiatric Consult ms is performed by phone with Dr Angel Gallegos. [facility] Admission Criteria: The patient is experiencing suicidal ideation. The patient requires continuous observation and/or control to protect self, others or property. Legal Status: Patient's legal status will be Emergency admission: . 17:43 [place] Safe Act: [place] Safe Act is applicable to this patient. The patient poses a risk ms to self or other and the Nursing Purse Seining Hand has been notified. He/She will enter the patient's data. DSM-V Differential Diagnosis: Unspecified Depressive Disorder (F32.9). Insurance Pre-Certification: Not Required. Awaiting: transfer to [facility]. Vital Signs: 15:13 BP 131 / 82; Pulse 98; Resp 17; Temp 97.8; Pulse Ox 99% ; Pain 0/10; mb9 17:46 BP 115 / 59; Pulse 86; Resp 16; Temp 98.3(O); Pulse Ox 99% on R/A; Pain 0/10; sew Vitals: 15:13 Log In Time N/A - ambulance arrival. mb9 ED Course: 14:59 Patient visited by Warren Martínez, Reg. pm4 14:59 Patient moved to [facility] pm4 15:03 Patient moved to [facility] mb9 15:08 Daryl Henson MD is Attending Physician. br1 15:17 Triage Initiated mb9 15:21 Patient visited by Daryl Henson MD. br1 15:37 Pt greeted and oriented to ED. Patient advised of names of staff involved in care, sew location of call carballo, wait times and NPO status. Patient has correct armband on for positive identification. Placed in psych safe attire. Bed in low position. Call light in reach. Side rails up X 1. Security observing. Property removed, inventory done, secured in belongings bag- placed in locked locker. Placed in locker 2. secure belongings bag, Secure bag Number [id number], placed in ED safe. Verbal reassurance given. Psych Safety Check: Location: Psych Room. Visual Assessment: Cooperative. 15:38 Patient visited by Mirian Manley. sew 15:41 Patient visited by Mirian Manley. sew 15:41 Warm blanket given. Pillow given. sew 15:55 [facility] Payment Agreement was scanned into Material Mix and attached to record. zo 16:05 Psych Safety Check: Location: Psych Room. Visual Assessment: Cooperative. sew 16:05 Acetaminophen Level Sent. sew 16:05 Basic Metabolic Profile Sent. sew 16:05 Complete Blood Count Sent. sew 16:05 Drug Eval Toxicology ED Only Sent. sew 16:05 Ethyl Alcohol (ethanol) Sent. sew 16:05 HCG,Serum Qualitative Sent. sew 16:05 Liver Profile Sent. sew 16:05 Salicylate Level Sent. sew 16:05 Thyroid Stimulating Hormone Sent. sew 16:05 Labs drawn. (by ED staff). Sent per order to lab. Urine collected. Clean catch sew specimen. Urine specimen sent to lab. 16:06 Patient visited by Mirian Manley. sew 16:34 Patient visited by Mirian Manley. sew 16:34 Psych Safety Check: Location: Psych Room. Visual Assessment: Sleeping. sew 17:07 Psych Safety Check: Location: Psych Room. Visual Assessment: Sleeping, Cooperative. mb9 17:10 Patient visited by Juan Craig RN. mb9 17:10 The patient / caregiver is instructed regarding the plan of care and ED course. mb9 17:10 No IV's were initiated during this patient's visit. No procedures done that require mb9 assistance. 17:18 Angel Gallegos is Hospitalizing Provider. br1 17:27 Other: [facility] Note was scanned into Material Mix and attached to record. jl 17:30 Patient visited by Mirian Manley. sew 17:30 Psych Safety Check: Location: Psych Room. Visual Assessment: Sleeping, Cooperative. sew 17:42 Patient visited by Mirian Manley. sew 17:42 Psych Safety Check: Location: Psych Room. Visual Assessment: Cooperative. sew 17:42 [facility] Legal paperwork was scanned into Material Mix and attached to record. jl 17:47 Patient visited by Mirian Manley. sew 17:54 Patient visited by Mirian Manley. sew 17:54 Psych Safety Check: Location: Psych Room. Visual Assessment: Cooperative. sew 05/28 08:59 T-Sheet-- Draft Copy was scanned into Material Mix and attached to record. gb 09:00 PCR was scanned into Material Mix and attached to record. gb Attachments: 17:42 [facility] Legal paperwork jl Order Results: Lab Order: Acetaminophen Level; SPEC'M 05/27/16 15:54 Test: ACETAMINOPHEN LEVEL; Value: < 2.0; Range: 10.0-30.0; Abnormal: Below low normal; Units: UG/ML; Status: F Lab Order: Basic Metabolic Profile; SPEC'M 05/27/16 15:54 Test: GLUCOSE, FASTING; Value: 72; Range: 70-105; Units: MG/DL; Status: F Test: BLOOD UREA NITROGEN; Value: 5; Range: 7-18; Abnormal: Below low normal; Units: MG/DL; Status: F Test: CREATININE FOR GFR; Value: 0.46; Range: 0.55-1.02; Abnormal: Below low normal; Units: MG/DL; Status: F Test: SODIUM LEVEL; Range: 136-145; Units: MEQ/L; Status: I Test: POTASSIUM SERUM; Range: 3.5-5.1; Units: MEQ/L; Status: I Test: CHLORIDE LEVEL; Range: 98-107; Units: MEQ/L; Status: I Test: CARBON DIOXIDE LEVEL; Range: 21-32; Units: MEQ/L; Status: I Test: ANION GAP; Range: 8-16; Units: MEQ/L; Status: I Test: CALCIUM LEVEL; Range: 8.5-10.1; Units: MG/DL; Status: I Test: GLOMERULAR FILTRATION RATE; Value: > 60.0; Range: >60; Status: F Test: SODIUM LEVEL; Value: 140; Range: 136-145; Units: MEQ/L; Status: F Test: POTASSIUM SERUM; Value: 4.0; Range: 3.5-5.1; Units: MEQ/L; Status: F Test: CHLORIDE LEVEL; Value: 107; Range: 98-107; Units: MEQ/L; Status: F Test: CARBON DIOXIDE LEVEL; Value: 23; Range: 21-32; Units: MEQ/L; Status: F Test: ANION GAP; Value: 10; Range: 8-16; Units: MEQ/L; Status: F Test: CALCIUM LEVEL; Value: 9.0; Range: 8.5-10.1; Units: MG/DL; Status: F Test Note: ; Units are mL/min/1.73 m2 Chronic Kidney Disease Staging per NKF: Stage I & II GFR >=60 Normal to Mildly Decreased Stage III GFR 30-59 Moderately Decreased Stage IV GFR 15-29 Severely Decreased Stage V GFR <15 Very Little GFR Left ESRD GFR <15 on SLOT FLOORMAN Lab Order: Complete Blood Count; SPEC'M 05/27/16 15:54 Test: WHITE BLOOD COUNT; Value: 11.0; Range: 4.0-10.0; Abnormal: Above high normal; Units: K/mm3; Status: F Test: RED BLOOD COUNT; Value: 4.42; Range: 4.00-5.40; Units: M/mm3; Status: F Test: HEMOGLOBIN; Value: 13.0; Range: 12.0-16.0; Units: g/dl; Status: F Test: HEMATOCRIT; Value: 37.5; Range: 36.0-47.0; Units: %; Status: F Test: MEAN CORPUSCULAR VOLUME; Value: 84.9; Range: 80.0-96.0; Units: fl; Status: F Test: MEAN CORPUSCULAR HEMOGLOBIN; Value: 29.3; Range: 27.0-33.0; Units: pg; Status: F Test: MEAN CORPUSCULAR HGB CONC; Value: 34.5; Range: 32.0-36.5; Units: g/dl; Status: F Test: RED CELL DISTRIBUTION WIDTH; Value: 13.5; Range: 11.5-14.5; Units: %; Status: F Test: PLATELET COUNT, AUTOMATED; Value: 197; Range: 150-450; Units: k/mm3; Status: F Lab Order: Drug Eval Toxicology ED Only; SPEC'M 05/27/16 15:43 Test: AMPHETAMINES LEVEL URINE; Value: NEGATIVE; Range: NEGATIVE; Status: F Test: BARBITURATES URINE; Value: NEGATIVE; Range: NEGATIVE; Status: F Test: BENZODIAZEPINES URINE; Value: NEGATIVE; Range: NEGATIVE; Status: F Test: CANNABINOIDS URINE; Value: NEGATIVE; Range: NEGATIVE; Status: F Test: COCAINE METABOLITE URINE; Value: NEGATIVE; Range: NEGATIVE; Status: F Test: METHADONE URINE; Value: NEGATIVE; Range: NEGATIVE; Status: F Test: OPIATES URINE; Value: NEGATIVE; Range: NEGATIVE; Status: F Test: TRICYCLIC ANTIDEPRESS URINE; Value: NEGATIVE; Range: NEGATIVE; Status: F Test Note: ; ALL PRESUMPTIVE POSITIVE FINDINGS ARE UNCONFIRMED NORMAL VALUES THRESHOLD IN NG/ML AMPHETAMINES 1000 METHAMPHETAMINES 1000 BARBITURATES 300 BENZODIAZEPINES 300 CANNABINOIDS (THC) 50 COCAINE METABOLITE 300 METHADONE 300 OPIATES 300 PHENCYCLIDINE 25 TRICYCLIC ANTIDEPRESSANTS 1000 RESULTS ARE FOR MEDICAL PURPOSES ONLY. ALL URINE SPECIMENS WILL BE SAVED FOR 3 DAYS. IF CONFIRMATION OF A PRESUMPTIVE POSTIVE SCREEN RESULT IS DESIRED, CALL CHEMISTRY ([phone]) AND REQUEST URINE TO BE SENT TO REFERENCE LAB. FOR A LIST OF CLOSELY RELATED COMPOUNDS PLEASE CALL THE LAB. Lab Order: Ethyl Alcohol (ethanol); SPEC'M 05/27/16 15:54 Test: ETHYL ALCOHOL (ETHANOL); Value: < 0.003; Range: 0.000-0.010; Units: %; Status: F Lab Order: HCG,Serum Qualitative; SPEC'M 05/27/16 15:54 Test: HCG, SERUM QUALITATIVE; Value: POSITIVE; Range: NEGATIVE; Abnormal: Abnormal; Status: F Lab Order: Liver Profile; SPEC'M 05/27/16 15:54 Test: AST/SGOT; Value: 13; Range: 15-37; Abnormal: Below low normal; Units: U/L; Status: F Test: ALT/SGPT; Value: 13; Range: 12-78; Units: U/L; Status: F Test: ALKALINE PHOSPHATASE; Value: 62; Range: 45-117; Units: U/L; Status: F Test: BILIRUBIN,TOTAL; Value: 0.2; Range: 0.2-1.0; Units: MG/DL; Status: F Test: BILIRUBIN,DIRECT; Value: < 0.1; Range: 0.0-0.2; Units: MG/DL; Status: F Test: TOTAL PROTEIN; Value: 7.0; Range: 6.4-8.2; Units: GM/DL; Status: F Test: ALBUMIN; Value: 3.4; Range: 3.2-5.2; Units: GM/DL; Status: F Test: ALBUMIN/GLOBULIN RATIO; Value: 0.94; Range: 1.00-1.93; Abnormal: Below low normal; Status: F Lab Order: Salicylate Level; SPEC'M 05/27/16 15:54 Test: SALICYLATE LEVEL; Value: < 1.7; Range: 5.0-30.0; Abnormal: Below low normal; Units: MG/DL; Status: F Lab Order: Thyroid Stimulating Hormone; SPEC'M 05/27/16 15:54 Test: THYROID STIMULATING HORMONE; Value: 0.995; Range: 0.358-3.740; Units: uIU/ML; Status: F Outcome: 05/27 17:18 Decision to Hospitalize by Provider. br1 18:08 Discharge Assessment: Patient awake, alert and oriented x 3. No cognitive and/or mb9 functional deficits noted. Patient verbalized understanding of disposition instructions. patient administered narcotics - no. The following High Risk Discharge criteria are identified: None. Admitted to Psych accompanied by tech. Condition: good Condition: stable Condition: improved. No special radiology studies were completed. 18:09 Patient left the ED. mb9 Signatures: Willard Perales, PSA PSA Bee Baugh, PSA PSA ms Mya Molina, Reg Reg gb Arnel Terry Brian, MD MD br1 Mirian Manley Michael, RN RN mb9 Warren Martínez, Reg Reg pm4 Corrections: (The following items were deleted from the chart) 17:14 16:27 Referral Information: Evaluation referral is generated by the patient himself / ms herself. The patient was referred for evaluation because Pt. states she came to ER because she is depressed and has been having suicidal thoughts. She denies having a plan to kill herself but states several plans have been going through her head. Pt. states that she is approx 15 weeks and has a two and three yr. old children at home, currently in car of her sister who resides with them. Pt. states that depression worsened and suicidal thoughts began after her left for training 5 days ago. She reports decreased sleep and appetite and states she has not been keeping up with the cooking and cleaning. Pt. reports that since she found out she was , the Zoloft she is prescribed has been decreased from 100 mg to 50 mg. She reports she has been taking Zoloft for about 2 years. Pt. reports history of self mutilation by cutting, most recently five days ago with superficial cuts made to right leg(above knee) with a razor blade. 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 She reports two suicide attempts as a teenager by taking Ibuprofen overdose.. ms Chart Complete MTDD
--- NOTE | 2016-05-29 19:10 | EDDOCDS ---
Physician Documentation [facility] Name: Gina Taveras Age: 25 yrs Sex: Female : 1990 Arrival Date: 05/27/2016 Time: 14:[address] [facility] Private MD: Disposition: 05/27/16 17:18 Hospitalization ordered by Angel Gallegos for Inpatient Admission. Preliminary diagnosis are Major depressive disorder, single episode, state, Suicidal ideations. - Bed requested for Admit. - Status is Inpatient Admission. mb9 - Condition is Stable. - Problem is new. - Symptoms are unchanged. Historical: - Allergies: No known drug Allergies; - Home Meds: 1. Zoloft 100 mg Oral tab 1 tab once daily 2. Vitamin Oral tab 1 tab once daily 3. sleep aide Unknown Unknown prn OTC medication - PMHx: Depression; Migraine Headaches; - PSHx: csection; - Social history: Smoking status: Patient states former smoker of tobacco. No barriers to communication noted, The patient speaks fluent Vietnamese. - Family history: No immediate family members are acutely ill. - : The pt / caregiver states he / she is not on anticoagulants. Home medication list is obtained from the patient. - Exposure Risk Screening:: None identified. 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 br1 15:21 Consult PFS/PSA/Grape Crusher: Patient's case requires discussion with on-call br1 Psychiatrist ordered. 15:21 PSA/PFS to call Nursing Vaccine Key Customer Leader, to enter patient data on [place] Safe Act if patient br1 involuntarily admitted or transferred for SI or HI ordered. 15:21 Confirm accurate psychiatric medication list and times of last dosage ordered. br1 15:21 Detain Pt Until Medically/PFS Cleared ordered. br1 15:21 REGULAR DIET PLASTIC CASTILLO+DIET ordered. EDMS 15:21 Acetaminophen Level Ordered. EDMS 15:21 Basic Metabolic Profile Ordered. EDMS 15:21 Complete Blood Count Ordered. EDMS 15:21 Drug Eval Toxicology ED Only Ordered. EDMS 15:21 Ethyl Alcohol (ethanol) Ordered. EDMS 15:22 HCG,Serum Qualitative Ordered. EDMS 15:22 Liver Profile Ordered. EDMS 15:22 Salicylate Level Ordered. EDMS 15:22 Thyroid Stimulating Hormone Ordered. EDMS 15:50 Financial registration complete. zo 15:51 Consult PFS/PSA/Grape Crusher complete. ms 15:51 Consult PFS/PSA/Grape Crusher: Patient's case requires discussion with on-call ms Psychiatrist complete. 15:51 PSA/PFS to call Nursing Vaccine Key Customer Leader, to enter patient data on [facility] Safe Act if patient ms involuntarily admitted or transferred for SI or HI complete. 15:55 [facility] Payment Agreement was scanned into eelusion and attached to record. zo 16:52 Acetaminophen Level Reviewed. br1 16:52 Basic Metabolic Profile Reviewed. br1 16:52 Complete Blood Count Reviewed. br1 16:52 HCG,Serum Qualitative Reviewed. br1 16:52 Liver Profile Reviewed. br1 16:52 Salicylate Level Reviewed. br1 16:52 Drug Eval Toxicology ED Only Reviewed. br1 16:52 Ethyl Alcohol (ethanol) Reviewed. br1 16:52 Thyroid Stimulating Hormone Reviewed. br1 16:53 Consult PFS/PSA/Socail Worker: Cleared medically for eval ordered. br1 16:58 Consult PFS/PSA/Socail Worker: Cleared medically for eval complete. ms 17:27 Other: [facility] Note was scanned into eelusion and attached to record. jl 17:42 [facility] Legal paperwork was scanned into eelusion and attached to record. jl 17:42 Admit to IMHU: ordered. EDMS 17:45 REGULAR DIET ordered. EDMS 05/28 08:59 T-Sheet-- Draft Copy was scanned into eelusion and attached to record. gb 09:00 PCR was scanned into eelusion and attached to record. gb Signatures: Dispatcher [employer] EDMS Willard Perales, PSA PSA Bee Baugh, PSA PSA ms Tracy, Mya, Reg Reg gb Harrison, Daryl Vann MD MD br1 Juna CraigRN RN mb9 The chart was reviewed and I authenticate all verbal orders and agree with the evaluation and treatment provided.Attachments: 05/27 15:55 [facility] Payment Agreement zo 05/28 08:59 T-Sheet-- Draft Copy gb Chart Complete MTDD
[2016-05-29] MEDS: PRENATAL VITAMIN TAB PO SCH (20:02)
[2016-05-29] MEDS: SERTRALINE HCL 50 MG TAB PO SCH (20:02)
[2016-05-30 06:25] VITALS: BP 108/63
[2016-05-30 18:00] VITALS: BP 113/64
[2016-05-30] MEDS: SERTRALINE HCL 50 MG TAB PO SCH (20:05)
[2016-05-30] MEDS: PRENATAL VITAMIN TAB PO SCH (20:05)
[2016-05-30] MEDS: ACETAMINOPHEN TAB 650MG DOSE (2X325MG) PO PRN (21:15)
[2016-05-31 06:19] VITALS: BP 90/55
--- NOTE | 2016-05-31 09:28 | IPN ---
DATE: 05/30/2016 The patient today "I'm good." She says she is not suicidal. She is not feeling depressed either. She says that she feels that her baby is not moving as much today and so we will obtain an ultrasound. MENTAL STATUS EXAMINATION: This patient is awake, alert, and oriented times three. Eye contact is fairly good. Psychomotor activity is normal. She is verbally spontaneous. There is no formal thought disorder noted. She says her mood is good. Her affect is full range and appropriate. She is not psychotic, suicidal or homicidal. Concentration is fair. Memory intact. Insight and judgment is fair. DIAGNOSES: 1. Major depressive disorder, recurrent, moderate. 2. depression by history. TREATMENT PLAN: At this point, we will continue to monitor the patient for continued resolution and stabilization of her mood and resolution of her suicidal ideations. We will continue to monitor for further clinical response to her medication and titrate her Zoloft as indicated.
[2016-05-31 18:00] VITALS: BP 122/69
[2016-05-31] MEDS: PRENATAL VITAMIN TAB PO SCH (20:57)
[2016-05-31] MEDS: SERTRALINE HCL 50 MG TAB PO SCH (20:57)
--- NOTE | 2016-06-01 01:37 | IPN ---
DATE OF SERVICE: 05/31/2016 The patient today states, "I'm doing good." She says she slept good. She has no complaints. She denies being depressed. MENTAL STATUS EXAMINATION: She is alert and oriented times three. She is pleasant and cooperative, verbally spontaneous. Eye contact is good. She is verbally spontaneous. There is no formal thought disorder noted. She says her mood is good. Her affect is full range and appropriate. She is not psychotic, suicidal, homicidal. Concentration is fair. Memory is intact. Insight and judgment is fair. DIAGNOSIS: Major depressive disorder, recurrent, moderate. TREATMENT PLAN: Monitor the patient for continued elevation and stabilization of her mood. We will monitor for continued resolution of suicidal ideation.
[2016-06-01 06:00] VITALS: BP 92/51
--- NOTE | 2016-06-01 17:50 | IPNPDOC ---
[facility] Progress Note Progress Note DATE OF SERVICE: 06/01/16 HISTORY: Patient was seen today to assess treatment progress on inpatient unit. Patient was observed to be sleeping in bed between groups but was easily roused and sat up on the side of bed to meet with freelance writer. Patient reports increased symptoms of anxiety and depression, denies audiovisual hallucinations, denies suicidal and homicidal ideation, denies urge to engage in self-injurious behavior. Patient today makes requests her Zoloft dose increase to 100 mg po q hs in effort to further address symptoms of anxiety and depression and states, "my mood was better at the higher dose." Patient spoke openly regarding concerns pertaining to being gone at [facility], informs freelance writer today she does not feel needs to be contacted by the [facility] for return, makes concerted effort to verbalize alternative coping strategies and notes, "I'm upset about it because he doesn't really need to be there, but I'm accepting it. " Patient indicates today when she discharges to home with children her sister will stay with her "probably for a couple months," is also aware that she will be following up with [facility] behavioral health services, states she is open to receiving other supportive services from the [facility]. Patient is aware freelance writer is highly recommending knives be removed from home prior to discharge. Patient was asked to continue to consider discharge plan which would not put her at risk of being able to care for herself, her unborn child, or her children prior to her coming home from [facility]. Patient continues to attend groups, is more visible in milieu, sometimes spends time in her room when not in groups. Patient indicates she is sleeping fine, denies nightmares, notes appetite is stable. Patient denies pain, however reported painful cramps to left leg which is now gone, notes she has addressed with nursing. 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 Patient began taking Zoloft approximately 2 years ago and states had been taking 100 mg po q hs until discovering she is , notes she and PCM agreed to dose reduction to 50 mg po q hs. Patient indicates she wants to continue taking medication. Potential risks and side effects of taking psychotropic medication while were again reviewed with patient who verbalizes understanding and notes she has also discussed potential risks with PCM who is prescriber and OB/ PLANT SPRAYER. Addendum: Senior Director Of Strategy contacted patient's PCM, Capt. Tran ([phone]) on 05/29/16 , on the [facility] base, who verified the patient is currently being prescribed Zoloft 50 mg po q hs by him, had been taking 100 mg po q hs intermittently with good effect prior to discovering she was . Capt. Tran indicated the patient was also offered Prozac which she declined. Capt. Tran indicated he is in agreement with patient taking Zoloft and stated he has "absolutely no problem" with Zoloft dose increase to 100 mg po q hs if needed/desired by patient. Capt. Tran was made aware of the events which led to patient's current hospitalization and was also informed of patient's request for the [facility] to be contacted for her to be returned from [facility]. Capt. Tran indicated that soldiers are generally recalled from [facility] "only in dire situations." VITAL SIGNS: See below LABORATORY DATA: Results from WBCs remain elevated. PA is addressing, patient is asymptomatic. RBC, Hgb, HCT low. On admission elevated WBCs. Low BUN, creatinine , AST, albumin/globulin ratio. UDS negative on admission. HCG positive, patient reports she is 15 weeks . EKG 05/28/16 SINUS RHYTHM MENTAL STATUS EXAMINATION: Patient is a 25-year old female, who is pleasant, cooperative, less disheveled today, dressed in hospital clothing, appears stated age who presents with childlike manner Speech: Is normal rate, rhythm, volume, mild rambling at times when talking about and children Thought processes: Clear, generally goal-directed Rate of thoughts: Within normal limits. Thought content: Logical, denies suicidal and homicidal ideation, denies audiovisual hallucinations and other psychotic symptoms, denies obsessions and compulsions Abstract reasoning: Appears somewhat improved Associations: Intact. Abnormal or psychotic thoughts: Lisa hallucinations, Delusions, Preoccupation with violence, Homicidal or suicidal ideation, and Obsessions. Judgment: Poor, some improvement Insight: Poor, some improvement Oriented to: Time, place and person. Recent and Remote Memory: Intact. Attention Span and Concentration: Fair. Language: Normal. Fund of knowledge: Adequate. 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 Patient remains superficially bright and engages with freelance writer on superficial level, but less so than at last interaction. Patient appears to have better understanding of the gravity of events which led to her current hospitalization. Patient indicates medication is partially effective, notes her mood is better when taking Zoloft 100 mg po q hs, today makes request for dose increase to Zoloft, denies medication side effects. Patient is less childlike in interactional style and displays some improvement to insight. Patient continues to attend groups, remains visible on the unit. Patient is able to effectively engage in the safety planning process and verbalizes awareness of how to access supportive services on the unit if needed. Will increase Zoloft to 100 mg po q hs at patient request in effort to further reduce symptoms of anxiety and depression, will continue to monitor medication effectiveness and for side effects. Patient has been educated on potential risks and side effects of psychotropic medication to unborn child, verbalizes awareness and understanding of risks. Patient states she intends to return to [facility] and [facility] and outpatient behavioral health for ongoing psychotherapy and medication management services. Will continue to observe patient on inpatient unit to ensure positive response to medication, patient safety, and patient's readiness for discharge. Discharge coordination will involve patient and support system to evaluate plausibility of discharge plan and to devise plan which will provide adequate support to patient and family. DIAGNOSES: Major depressive disorder, recurrent, moderate, depression by history MANAGEMENT PLAN: Increase Zoloft to 100 mg po q am, continue to evaluate need for dose increase Consult with PCM - completed 05/29/16 Maintain safety precautions Patient to attend groups and participate in unit programming to develop coping strategies Engage patient in discharge planning process and arrange meeting with command to evaluate safe discharge planning when appropriate Patient to follow up with [place] [facility] and [facility]PERATOR upon discharge Vital Signs/I&O Vital Signs Date Time Temp Pulse Resp B/P Pulse Ox O2 Delivery O2 Flow Rate FiO2 06/01/16 06:00 95.4 95 16 92/51 05/27/16 18:15 99 Room Air Current Medications Current Medications Acetaminophen (Tylenol) 650 mg Q6HP PRN PO HEADACHE or DISCOMFORT Last administered on 05/30/16 21:15; Start 05/27/16 at 19:00; Stop 06/26/16 at 18:59 Home Med (Med Rec Complete!) ASDIRECTED XX ; Start 05/27/16 at 18:15; Stop 04/02 at 18:15; Status DC Prenat Multivit/ Food Preparer/Iron/Folic Ac ( Rx) 1 tab QPM PO Last administered on 05/31/16 20:57; Start 05/27/16 at 21:00; Stop 06/26/16 at 20:59 Sertraline HCl (Zoloft) 50 mg QHS PO Last administered on 05/31/16 20:57; Start 05/27/16 at 21:00; Stop 06/26/16 at 20:59 Allergies Coded Allergies: No Known Allergies (Unverified , 05/27/16) Lisa Loco Jun 01, 2016 17:50
[2016-06-01 18:00] VITALS: BP 107/52
[2016-06-01] MEDS: SERTRALINE HCL 50 MG TAB PO SCH (20:49)
[2016-06-01] MEDS: PRENATAL VITAMIN TAB PO SCH (20:49)
[2016-06-01] MEDS: ACETAMINOPHEN TAB 650MG DOSE (2X325MG) PO PRN (21:58)
[2016-06-02 06:30] VITALS: BP 95/51
--- NOTE | 2016-06-02 12:49 | IPNPDOC ---
[facility] Progress Note Progress Note DATE OF SERVICE: 06/02/16 HISTORY: Patient was seen today to assess treatment progress on inpatient unit. Patient was observed to be sleeping in bed between groups but was easily roused and sat up on the side of bed to meet with signwriter. Patient reports reduction to symptoms of anxiety and depression post Zoloft dose increase noting, "I know it' s probably a placebo effect but I feel better." Patient reports likely medication side effect of fatigue, informs signwriter that in the past when she has increased Zoloft to 100 mg she has experienced fatigue for first few days, then side effect subsides. Patient denies audiovisual hallucinations, denies suicidal and homicidal ideation, denies urge to engage in self-injurious behavior. Patient reiterates today she does not want to to be called home from [facility], feels she will be able to devise discharge plan with health safety coordinator which will allow her to feel safe at home, care for her children, care for her unborn child, and receive the support she needs from resources on [place]. Patient states is due back from [facility] on 06/25/16. Patient remains aware that she will be following up with [place] outpatient behavioral health services, states she remains open to receiving other supportive services from the [facility]. Patient is aware signwriter is highly recommending knives be removed from home prior to discharge. Patient was asked to continue to consider discharge plan which would not put her at risk of being able to care for herself, her unborn child, or her children prior to her coming home from [facility]. Patient continues to attend groups, is more visible in milieu, sometimes spends time in her room when not in groups. Patient indicates she is sleeping fine, denies nightmares, notes appetite is stable. Patient denies physical pain. 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 Patient began taking Zoloft approximately 2 years ago and states had been taking 100 mg po q hs until discovering she is , notes she and PCM agreed to dose reduction to 50 mg po q hs. Patient indicates she wants to continue taking medication. Potential risks and side effects of taking psychotropic medication while were again reviewed with patient who verbalizes understanding and notes she has also discussed potential risks with PCM who is prescriber and OB/ SENIOR RELATIONSHIP MANAGER. Addendum: Insurance Professional contacted patient's PCM, Capt. Tran ([phone]) on 05/29/16 , on the [place] [employer] base, who verified the patient is currently being prescribed Zoloft 50 mg po q hs by him, had been taking 100 mg po q hs intermittently with good effect prior to discovering she was . Capt. Tran indicated the patient was also offered Prozac which she declined. Capt. Tran indicated he is in agreement with patient taking Zoloft and stated he has "absolutely no problem" with Zoloft dose increase to 100 mg po q hs if needed/desired by patient. Capt. Tran was made aware of the events which led to patient's current hospitalization and was also informed of patient's request for the [facility] to be contacted for her to be returned from [facility]. Capt. Tran indicated that soldiers are generally recalled from [facility] "only in dire situations." VITAL SIGNS: See below LABORATORY DATA: Results from WBCs remain elevated. PA is addressing, patient is asymptomatic. RBC, Hgb, HCT low. On admission elevated WBCs. Low BUN, creatinine , AST, albumin/globulin ratio. UDS negative on admission. HCG positive, patient reports she is 15 weeks . EKG 05/28/16 SINUS RHYTHM MENTAL STATUS EXAMINATION: Patient is a 25-year old female, who is pleasant, cooperative, exhibits improved personal hygiene, is dressed in hospital clothing , appears stated age, presents with less of a childlike manner today Speech: Is normal rate, rhythm, volume, no rambling Thought processes: Clear, goal-directed Rate of thoughts: Within normal limits. Thought content: Logical, denies suicidal and homicidal ideation, denies audiovisual hallucinations and other psychotic symptoms, denies obsessions and compulsions Abstract reasoning: Continues to improve Associations: Intact. Abnormal or psychotic thoughts: Lisa hallucinations, Delusions, Preoccupation with violence, Homicidal or suicidal ideation, and Obsessions. Judgment: Limited, continues to improve Insight: Limited, some improvement Oriented to: Time, place and person. Recent and Remote Memory: Intact. Attention Span and Concentration: Fair. Language: Normal. Fund of knowledge: Adequate. Mood: "Better, I think I'm learning some things about coping. 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 Patient is less superficially bright and engages with signwriter on a less superficial level. Patient is today able to verbalize desire to cope independently and care for her children while is at [facility], indicates clearly to signwriter that she does not want to be recalled from training exercise. Patient appears to have better understanding of the gravity of events which led to her current hospitalization. Patient indicates medication is partially effective, notes her mood is better when taking Zoloft 100 mg po q hs , today makes request for dose increase to Zoloft, denies medication side effects. Patient is less childlike in interactional style and displays some improvement to insight. Patient continues to attend groups, remains visible on the unit. Patient is able to effectively engage in the safety planning process and verbalizes awareness of how to access supportive services on the unit if needed. Will continue to monitor patient's response to Zoloft dose increase to 100 mg po q hs. Patient has been educated on potential risks and side effects of psychotropic medication to unborn child, verbalizes awareness and understanding of risks. Patient states she intends to return to [facility] and [employer] and outpatient behavioral health for ongoing psychotherapy and medication management services. Will continue to observe patient on inpatient unit to ensure positive response to medication, patient safety, and patient's readiness for discharge. Discharge coordination will involve patient and support system to evaluate plausibility of discharge plan and to devise plan which will provide adequate support to patient, unborn child, and family. DIAGNOSES: Major depressive disorder, recurrent, moderate, depression by history MANAGEMENT PLAN: Continue Zoloft to 100 mg po q am Consult with PCM - completed 05/29/16 Maintain safety precautions Patient to attend groups and participate in unit programming to develop coping strategies Engage patient in discharge planning process and arrange meeting with command to evaluate safe discharge planning when appropriate Patient to follow up with [place] [facility] and [facility] [employer] upon discharge Vital Signs/I&O Vital Signs Date Time Temp Pulse Resp B/P Pulse Ox O2 Delivery O2 Flow Rate FiO2 06/02/16 08:43 Room Air 06/02/16 06:30 97.6 83 16 95/51 05/27/16 18:15 99 Current Medications Current Medications Acetaminophen (Tylenol) 650 mg Q6HP PRN PO HEADACHE or DISCOMFORT Last administered on 06/01/16 21:58; Start 05/27/16 at 19:00; Stop 06/26/16 at 18:59 Home Med (Med Rec Complete!) ASDIRECTED XX ; Start 05/27/16 at 18:15; Stop 04/02 at 18:15; Status DC Prenat Multivit/ [place]/Iron/Folic Ac ( Rx) 1 tab QPM PO Last administered on 06/01/16 20:49; Start 05/27/16 at 21:00; Stop 06/26/16 at 20:59 Sertraline HCl (Zoloft) 50 mg QHS PO Last administered on 05/31/16 20:57; Start 05/27/16 at 21:00; Stop 06/01/16 at 17:51; Status DC Sertraline HCl (Zoloft) 100 mg QHS PO Last administered on 06/01/16 20:49; Start 06/01/16 at 21:00; Stop 07/01/16 at 20:59 Allergies Coded Allergies: No Known Allergies (Unverified , 05/27/16) Lisa Loco Jun 02, 2016 12:49
[2016-06-02 18:00] VITALS: BP 107/59
[2016-06-02] MEDS: PRENATAL VITAMIN TAB PO SCH (20:31)
[2016-06-02] MEDS: SERTRALINE HCL 50 MG TAB PO SCH (20:31)
[2016-06-03 06:40] VITALS: BP 111/57
--- NOTE | 2016-06-03 17:57 | IPNPDOC ---
[facility] Progress Note Progress Note DATE OF SERVICE: 06/03/16 HISTORY: Patient was seen today to assess treatment progress on inpatient unit. Patient was observed to be sleeping in bed between groups but was easily roused and sat up to meet with com writer. Patient today denies symptoms of anxiety and depression and indicates recent Zoloft dose increase is "helping, I feel much better." Patient denies medication side effects other than sedation which she has stated in past she experiences with dosing increases, notes side effect tends to dissipate after approximately 7 days. Patient denies audiovisual hallucinations, denies suicidal and homicidal ideation, denies urge to engage in self-injurious behavior. Patient reiterates today she does not want to to be called home from [facility], feels she will be able to discharge to home safely and care for her children and unborn child. Patient is in agreement with receiving support from [facility] and is aware pesticide use medical coordinator is attempting to schedule a meeting to ensure that supportive services are in place. Patient notes she will also have her sister staying with her for couple months as patient transitions to home. Patient's is reportedly due back from [facility] on 06/25/16. Patient remains aware that she will be following up with [facility] behavioral health services, states she remains open to receiving other supportive services from the [facility]. Patient was asked to continue to consider discharge plan which would not put her at risk of being able to care for herself, her unborn child, or her children prior to her coming home from [facility]. Patient continues to attend groups, is more visible in milieu, sometimes spends time in her room when not in groups. Patient indicates she is sleeping fine, denies nightmares, notes appetite is stable. Patient denies physical pain. Patient states today 's knife collection has been removed from the home by patient's sister who has given them to a friend for storing purposes. Of Note: Patient is 15 weeks , indicates was unplanned, adds plan is to function as surrogate mother to child who will be raised by patient' s lesbian sister and her partner who reside in [place]. Patient began taking Zoloft approximately 2 years ago and states had been taking 100 mg po q hs until discovering she is , notes she and PCM agreed to dose reduction to 50 mg po q hs. Patient indicates she wants to continue taking medication. Potential risks and side effects of taking psychotropic medication while were again reviewed with patient who verbalizes understanding and notes she has also discussed potential risks with PCM who is prescriber and OB/ CAPPER MACHINE OPERATOR. Addendum: Haul Cane Brakeman contacted patient's PCM, Capt. Tran ([phone]) on 05/29/16 , on the [facility] [place], who verified the patient is currently being prescribed Zoloft 50 mg po q hs by him, had been taking 100 mg po q hs intermittently with good effect prior to discovering she was . Capt. Tran indicated the patient was also offered Prozac which she declined. Capt. Tran indicated he is in agreement with patient taking Zoloft and stated he has "absolutely no problem" with Zoloft dose increase to 100 mg po q hs if needed/desired by patient. Capt. Tran was made aware of the events which led to patient's current hospitalization and was also informed of patient's request for the [facility] to be contacted for her to be returned from [facility]. Luis Miguel Tran indicated that soldiers are generally recalled from [facility] "only in dire situations." VITAL SIGNS: See below LABORATORY DATA: Results from WBCs remain elevated. PA is addressing, patient is asymptomatic. RBC, Hgb, HCT low. On admission elevated WBCs. Low BUN, creatinine , AST, albumin/globulin ratio. UDS negative on admission. HCG positive, patient reports she is 15 weeks . EKG 05/28/16 SINUS RHYTHM MENTAL STATUS EXAMINATION: Patient is a 25-year old female, who is pleasant, cooperative, exhibits improved personal hygiene, is dressed in hospital clothing , appears stated age, presents with less of a childlike manner today, generally appears stated age Speech: Is normal rate, rhythm, volume, no rambling Thought processes: Clear, goal-directed Rate of thoughts: Within normal limits. Thought content: Logical, denies suicidal and homicidal ideation, denies audiovisual hallucinations and other psychotic symptoms, denies obsessions and compulsions Abstract reasoning: Continues to improve Associations: Intact. Abnormal or psychotic thoughts: Lisa hallucinations, Delusions, Preoccupation with violence, Homicidal or suicidal ideation, and Obsessions. Judgment: Fair, continues to improve Insight: Fair, some improvement Oriented to: Time, place and person. Recent and Remote Memory: Intact. Attention Span and Concentration: Fair. Language: Normal. Fund of knowledge: Adequate. Mood: "Better, I think I'm going to be able to take care of myself and my kids and my sister will help. 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 Patient's interactional pattern does not appear to be superficial and she engages with com writer on an adult level, makes good eye contact and appears to be communicating with com writer in sincere manner. Patient reiterates today she feels she will be able to cope independently care for her children, denies wanting to have got back from [facility] prior to training completion. Patient appears to have better understanding of the gravity of events which led to her current hospitalization. Patient states dosing increase to Zoloft is effective, adds she feels mood is improved and anxiety is reduced, displays improvement in insight. Patient continues to attend groups, remains visible on the unit. Patient is able to effectively engage in the safety planning process and verbalizes awareness of how to access supportive services on the unit if needed. Will continue to monitor patient's response to Zoloft dose increase. Patient has been educated on potential risks and side effects of psychotropic medication to unborn child, verbalizes awareness and understanding of risks. Patient states she intends to return to [facility] PCM and WINDOWS APPLICATION PACKAGER and outpatient behavioral health for ongoing psychotherapy and medication management services. Will continue to observe patient on inpatient unit to ensure positive response to medication, patient safety, and patient's readiness for discharge. Discharge coordination will involve patient and support system to evaluate plausibility of discharge plan and to devise plan which will provide adequate support to patient, unborn child, and family. DIAGNOSES: Major depressive disorder, recurrent, moderate, depression by history MANAGEMENT PLAN: Continue Zoloft to 100 mg po q am Consult with PCM - completed 05/29/16 Maintain safety precautions Patient to attend groups and participate in unit programming to develop coping strategies Engage patient in discharge planning process and arrange meeting with command to evaluate safe discharge planning when appropriate Patient to follow up with [facility] PCM and WINDOWS APPLICATION PACKAGER upon discharge Vital Signs/I&O Vital Signs Date Time Temp Pulse Resp B/P Pulse Ox O2 Delivery O2 Flow Rate FiO2 06/03/16 09:19 Room Air 06/03/16 06:40 97.6 94 18 111/57 Current Medications Current Medications Acetaminophen (Tylenol) 650 mg Q6HP PRN PO HEADACHE or DISCOMFORT Last administered on 06/01/16 21:58; Start 05/27/16 at 19:00; Stop 06/26/16 at 18:59 Home Med (Med Rec Complete!) ASDIRECTED XX ; Start 05/27/16 at 18:15; Stop 04/02 at 18:15; Status DC Prenat Multivit/ [place]/Iron/Folic Ac ( Rx) 1 tab QPM PO Last administered on 06/02/16 20:31; Start 05/27/16 at 21:00; Stop 06/26/16 at 20:59 Sertraline HCl (Zoloft) 50 mg QHS PO Last administered on 05/31/16 20:57; Start 05/27/16 at 21:00; Stop 06/01/16 at 17:51; Status DC Sertraline HCl (Zoloft) 100 mg QHS PO Last administered on 06/02/16 20:31; Start 06/01/16 at 21:00; Stop 07/01/16 at 20:59 Allergies Coded Allergies: No Known Allergies (Unverified , 05/27/16) Lisa Loco Jun 03, 2016 17:57
[2016-06-03 18:00] VITALS: BP 92/52
[2016-06-03] MEDS: PRENATAL VITAMIN TAB PO SCH (21:05)
[2016-06-03] MEDS: SERTRALINE HCL 50 MG TAB PO SCH (21:06)
[2016-06-03] MEDS ORDERED: SODIUM CHLORIDE NASAL 0.65% SPRAY BTL (OCEAN) PRN (23:00)
[2016-06-04 06:46] VITALS: BP 106/63
[2016-06-04] MEDS ORDERED: SERT-141 PO (10:55)
[2016-06-04] MEDS ORDERED: OCEA0.654 (12:19)
[2016-06-04 12:30] VITALS: BP 117/72
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
== END 2016-06-04 13:00 | disposition home or self-care (01) | DRG 781 ==
LOC: M ED 14:57 → M PSY 17:37
PROVIDERS: ADMIT Psychiatry & Neurology Psychiatry; ATTEND Psychiatry & Neurology Psychiatry
DX: O99.342 Other mental disorders complicating pregnancy, second trimester (principal); F33.1 Major depressive disorder, recurrent, moderate; Z3A.15 15 weeks gestation of pregnancy; F41.9 Anxiety disorder, unspecified; G47.00 Insomnia, unspecified; Z64.0 Problems related to unwanted pregnancy; Z63.0 Problems in relationship with spouse or partner; Z63.32 Other absence of family member

== ENCOUNTER 2016-10-12 00:34 | Outpatient (CLI) | payer OTHER ==
[~2016-10-12] VITALS: Ht 160 cm; Wt 80.0 kg
[~2016-10-12 00:34] MED LIST: OCEA0.654; PRENTAB16 PO; SERT50TA PO; UNIS25TA2 PO; ZOLO50TA PO
[2016-10-12 00:48] VITALS: BP 122/78
[2016-10-12 01:32] LABS: MEAN CORPUSCULAR HEMOGLOBIN 28.9 pg (27.0-33.0); MEAN CORPUSCULAR HGB CONC 34.2 g/dl (32.0-36.5); MEAN CORPUSCULAR VOLUME 84.7 fl (80.0-96.0); RED CELL DISTRIBUTION WIDTH 13.2 % (11.5-14.5); WHITE BLOOD COUNT 8.9 K/mm3 (4.0-10.0)
[2016-10-12 01:52] LABS: ALBUMIN 2.4 GM/DL (3.2-5.2); ALBUMIN/GLOBULIN RATIO 0.57 (1.00-1.93); ALKALINE PHOSPHATASE 169 U/L (45-117); ALT/SGPT 12 U/L (12-78); ANION GAP 7 MEQ/L (8-16); AST/SGOT 16 U/L (15-37); BILIRUBIN,TOTAL 0.2 MG/DL (0.2-1.0); BLOOD UREA NITROGEN 7 MG/DL (7-18); CALCIUM LEVEL 8.6 MG/DL (8.5-10.1); CARBON DIOXIDE LEVEL 24 MEQ/L (21-32); CHLORIDE LEVEL 109 MEQ/L (98-107); CREATININE FOR GFR 0.59 MG/DL (0.55-1.02); GLOMERULAR FILTRATION RATE > 60.0 (>60); GLUCOSE, FASTING 94 MG/DL (70-105); POTASSIUM SERUM 3.7 MEQ/L (3.5-5.1); SODIUM LEVEL 140 MEQ/L (136-145); TOTAL PROTEIN 6.6 GM/DL (6.4-8.2)
--- NOTE | 2016-10-12 04:56 | HPE ---
DATE OF ADMISSION: 10/12/2016 This lady is a 26-year-old 3, para 2, last menstrual period (LMP) 01/26/2016, estimated date of confinement (EDC) 11/09/2016. She is at 36 weeks of gestation has a history of nausea and vomiting for the last 24-48 hours. Her risk factor is she has had two previous sections, requested a trial of labor after section (TOLAC), is booked for an elective repeat section on 11/03 if she fails to go into active labor. She has a history of depression in . She spent some time in the MICU. She has gestational diabetes. She is supposed to be monitoring her blood sugars, but she does not do that. She has had a depression on a scale of 21/30 and is not taking any medication. She also does not do any monitoring. She has no scheduled amniotic fluid indexes (AFIs) or NSTs. She has one growth scan booked in the beginning of October. Her past history is June 2012, had a primary section at 34 weeks because of a cardiac issue in the fetus, which resolved apparently and then she had a repeat section April 2014 at 37 and 5 for non-reassuring heart strip. Labs show she is B positive, HIV negative, hepatitis negative, RPR negative, rubella immune. Varicella immune. Pap normal. Gonorrhea and chlamydia are negative. Her 1-hour glucose was 140; however, 3-hour GTT she just did the fasting which was 157. Today she is in no acute distress. Symphysis fundus height is 36, nontender uterus. Four quadrant bowel sounds are noted. Category one strip with accelerations 15 x 15, no decelerations, moderate variability and six and 25. Pelvic examination, vertex, -2, 50% effaced, posterior. No loss of fluid or vaginal bleeding. Metabolic profile indicated her glucose was 94. Electrolytes were normal. Hemoglobin 11.3, hematocrit 33.2, platelets were 147 and her anion gap was 7. Urine is 1.005, pH of 6. Blood pressure is 122/78, respirations 18, pulse 98, temperature 99.0. The rest of the examination is unremarkable. She is normocephalic, atraumatic. Neck full range of motion. Pupils equal and reactive to light. Distal pulses are symmetric. No evidence of deep venous thrombosis (DVT), pulmonary embolus (PE) or superficial phlebitis. Chest is clear bilaterally to bases, no wheezes or rhonchi. Thyroid is normal, 30 grams midline, nontender. No costovertebral angle (CVA) tenderness. She has no rashes, lesions or pruritus. No arthralgia, myalgia. No complaints of cough, wheezes, shortness breath or dyspnea on exertion. No chest pain. She is not bleeding. Neurologically complete. No incontinence, urgency or frequency. No nausea, vomiting, diarrhea or constipation. Her diabetic issues are unresolved. Gynecological history is unremarkable. Past medical history negative. Her surgical history is two previous sections. She does not smoke or drink, abuse drugs. She is . There is no domestic violence. There is some significant depression going on with this patient. In summary, we have a pretermer who had nausea, vomiting for several days and does not monitor blood sugars despite the fact she is an AG diabetes mellitus (DM)1. She has no monitoring presently at the clinic. She is not in active labor. Her dehydration is minimal and she has no scar pain and she was discharged undelivered to followup in the office next week.
== END 2016-10-12 02:23 | disposition home or self-care (01) ==
LOC: M LDO 00:34
PROVIDERS: ATTEND Obstetrics & Gynecology
DX: O26.893 Other specified pregnancy related conditions, third trimester (principal); Z3A.36 36 weeks gestation of pregnancy; O21.9 Vomiting of pregnancy, unspecified; O24.419 Gestational diabetes mellitus in pregnancy, unspecified control; O99.343 Other mental disorders complicating pregnancy, third trimester; F32.9 Major depressive disorder, single episode, unspecified; Z87.51 Personal history of pre-term labor

== ENCOUNTER 2016-10-16 10:21 | Outpatient (CLI) | payer OTHER ==
[~2016-10-16] VITALS: Ht 160 cm; Wt 62.0 kg
[2016-10-16 10:55] VITALS: BP 120/72
[2016-10-16] MEDS ORDERED: ASPI81CH PO (10:59)
[2016-10-16 12:14] LABS: MEAN CORPUSCULAR HEMOGLOBIN 29.1 pg (27.0-33.0); MEAN CORPUSCULAR HGB CONC 34.2 g/dl (32.0-36.5); MEAN CORPUSCULAR VOLUME 85.1 fl (80.0-96.0); RED CELL DISTRIBUTION WIDTH 13.3 % (11.5-14.5); WHITE BLOOD COUNT 9.2 K/mm3 (4.0-10.0)
--- NOTE | 2016-10-16 21:04 | HPE ---
DATE OF ADMISSION: 10/16/2016 HISTORY OF PRESENT ILLNESS: A 26-year-old 3, para 2, last menstrual period (LMP) 01/26/2016, estimated date of confinement (EDC) 11/09/2016. She is at 37 weeks of gestation and she fell down four stairs today. No loss of consciousness. No loss of fluid. No vaginal bleeding. No contractions. No scar pain. She went to take her to work and came in for evaluation. Her past history is that on 07/12/2012, at 34 weeks had a section. Baby had a murmur, was in intensive care unit (NICU) for a period of time. On 05/05/2014, had nonreassuring heart tones, had pre-eclampsia and had a repeat section. Presently she suffers from depression/cutting, migraines, and has had two previous sections, requesting trial of labor after (TOLAC). LABORATORY DATA: Labs show B positive, HIV negative, hepatitis negative, RPR negative, rubella immune. Varicella nonimmune. Pap normal. Gonorrhea and chlamydia negative. One-hour glucose was 140. She is apparently doing her glucose and we did a spot glucose here which was 72. Her GBS status is unknown. PHYSICAL EXAMINATION: On physical examination no acute distress. No uterine tenderness. No vaginal bleeding or loss. She is normocephalic, atraumatic. Neck full range of motion. Pupils equal and reactive to light. Symphysis fundus height is appropriate. Four-quadrant bowel sounds are noted. Category one strip with 15 x 15 accelerations, no decelerations and no contractions. She complained of some brown discharge. We evaluated her cervix. It was closed, posterior and high. We did have a vaginal swab. There was no evidence of blood on the Q-tip. Chest is clear bilaterally to bases. No wheezes or rhonchi. No costovertebral angle tenderness. She has no rashes, lesions or pruritus. No arthralgia or myalgia. She is not complaining of cough, wheeze, shortness of breath or dyspnea on exertion. She has no chest pain. She is not bleeding. Neuro complete. No incontinence, urgency or frequency. No nausea, vomiting, diarrhea or constipation. No diabetic issues. She is apparently checking her own sugars. She has no gynecological history. Past surgical history is two sections. She does not smoke or drink ,abuse drugs. She is . There is no domestic violence. We evaluated her blood pressure as 120/72, respirations 18, pulse is 102 and temperature is 98.0. Her urine is 1.010, pH seven negative, negative, negative. She had a spot glucose of 72, Betke-Kleihauer was negative. We monitored for several hours, found no issues with baby or mother, gave her precautions, and discharged to followup in the office in one week's time. The patient is electively booked for repeat section unless she goes into spontaneous labor.
== END 2016-10-16 12:26 | disposition home or self-care (01) ==
LOC: M LDO 10:21
PROVIDERS: ATTEND Obstetrics & Gynecology
DX: Z04.3 Encounter for examination and observation following other accident (principal); O26.893 Other specified pregnancy related conditions, third trimester; W10.8XXA Fall (on) (from) other stairs and steps, initial encounter; Y92.89 Other specified places as the place of occurrence of the external cause; Y93.89 Activity, other specified; Y99.8 Other external cause status; O24.420 Gestational diabetes mellitus in childbirth, diet controlled; Z3A.37 37 weeks gestation of pregnancy

== ENCOUNTER 2016-10-17 13:03 | Outpatient (CLI) | payer OTHER ==
[~2016-10-17] VITALS: Ht 160 cm; Wt 78.0 kg
[~2016-10-17 13:03] MED LIST changes: +ASPI81CH PO
[2016-10-17 13:21] VITALS: BP 118/73
--- NOTE | 2016-10-17 16:01 | IPNPDOC ---
Text Note Date of Service The patient was seen on 10/17/16. NOTE [id number] @ 1549- late entry 26 yo presents to L&D triage ambulatory with c/o LOF and CTX @ 36+5 by 7+1 wk US on [id number]. She was seen yesterday in L&D Triage for abdominal pain. S: She is in the triage bed on her left side scrolling through her phone. States she had a big gush of fluid when she sat up from sitting on the couch 20 min ago. She arrived without a pad in "booty shorts". Reports no LOF since leaving home. States she has no DFM or vaginal bleeding. Her spouse accompanied her with her 2 children(they are in the waiting room). Pt asked when she arrived if we were going to check her urine for drugs. O: VS- WNL, afebrile FHR- 140, mod, + accels, no decels CTX- none- abdomen palpated as soft. The toco monitor strip showed "ctx" that only happened when the nurse wasn't in the room. It appears the patient is putting pressure on the monitor to look like she is having ctxs. She denies touching the monitors. "ctx" on the tracing were 10-20 seconds ever 1-40 seconds when the nurse was not in the room. JOSIE- 11.1 Valsalva- negative Pooling- negative Nitrazine- negative Ferning- negative Urine sent for drug screening A: 26 yo @ 36+5 by 7+1 wk US with a reactive & reassuring NST. JOSIE- 11.1, all testing for SROM negative. P: Sent home with strict return precautions for DFM, LOF, CTX and VB. VS,Fishbone, I+O VS, Fishbone, I+O Vital Signs Date Time Temp Pulse Resp B/P (MAP) Pulse Ox O2 Delivery O2 Flow Rate FiO2 10/17/16 13:21 104 18 118/73 (88) PEDRO PABLO SALGADO CNM Oct 17, 2016 16:01
[2016-10-30] MEDS ORDERED: ASPI81TA85 PO (16:01)
[2016-10-30] MEDS ORDERED: SERT-138 PO (16:01)
== END 2016-10-17 14:31 | disposition home or self-care (01) ==
LOC: M LDO 13:03
PROVIDERS: ATTEND Midwife
DX: Z34.83 Encounter for supervision of other normal pregnancy, third trimester (principal); Z3A.36 36 weeks gestation of pregnancy

== ENCOUNTER 2016-10-26 17:57 | Outpatient (CLI) | payer OTHER ==
[~2016-10-26] VITALS: Ht 160 cm; Wt 80.0 kg
[2016-10-26 18:12] VITALS: BP 132/76
[2016-10-26] MEDS ORDERED: TYLE500T78 PO (18:17)
[2016-10-26 18:53] VITALS: BP 116/73
[2016-10-30] MEDS ORDERED: ASPI81TA85 PO (16:01)
[2016-10-30] MEDS ORDERED: SERT-138 PO (16:01)
== END 2016-10-26 19:00 | disposition home or self-care (01) ==
LOC: M LDO 17:57
PROVIDERS: ATTEND Obstetrics & Gynecology
DX: O99.89 Other specified diseases and conditions complicating pregnancy, childbirth and the puerperium (principal); R10.30 Lower abdominal pain, unspecified; Z3A.38 38 weeks gestation of pregnancy

== ENCOUNTER 2016-11-01 07:55 | Inpatient (IN) | payer OTHER ==
[~2016-11-01] VITALS: Ht 160 cm; Wt 81.0 kg
[2016-11-01] VITALS (9 sets, daily range): BP systolic 105–135; BP diastolic 60–84
[~2016-11-01 07:55] MED LIST changes: +ASPI81TA85 PO; +SERT-138 PO; +TYLE500T78 PO
[2016-11-01] MEDS ORDERED: LR 1,000 ML IV SCH ×2 (10:30→18:15)
[2016-11-01 10:39] LABS: MEAN CORPUSCULAR HEMOGLOBIN 29.1 pg (27.0-33.0); MEAN CORPUSCULAR HGB CONC 34.3 g/dl (32.0-36.5); RED CELL DISTRIBUTION WIDTH 13.9 % (11.5-14.5); WHITE BLOOD COUNT 10.3 K/mm3 (4.0-10.0)
[2016-11-01] MEDS ORDERED: BICITRA 30ML SOLN UDC As Ordered ONE (16:12)
[2016-11-01] MEDS ORDERED: BICITRA 30ML SOLN UDC PO ONE (16:30)
[2016-11-01] MEDS ORDERED: NALOXONE INJ 0.4 MG/1 ML VIAL (J2310) IV PRN ×2 (16:54)
[2016-11-01] MEDS ORDERED: METOCLOPRAMIDE INJ 10MG/2ML VIAL (J2765) IV PRN ×3 (16:54→18:30)
[2016-11-01] MEDS ORDERED: ONDANSETRON 4MG/2ML VIAL (J2405) IV PRN ×2 (16:54→18:15)
[2016-11-01] MEDS ORDERED: ONDANSETRON 4MG/2ML VIAL (J2405) As Ordered ONE (17:00)
[2016-11-01] MEDS ORDERED: OXYTOCIN INJ 10 UNITS/ML VIAL (J2590) As Ordered ONE (17:00)
[2016-11-01] MEDS ORDERED: KETOROLAC 60 MG/2 ML VIAL (J1885) As Ordered ONE (17:00)
[2016-11-01] MEDS ORDERED: MORPHINE PRES-FREE INJ 10 MG/10 ML VIAL (J2274) As Ordered ONE (17:00)
[2016-11-01] MEDS ORDERED: PHENYLephrine HCL 500 MCG/5 ML (100MCG/ML) SYRINGE (J2370) As Ordered ONE (17:39)
[2016-11-01] MEDS ORDERED: fentaNYL 100 MCG/2 ML INJECTION (J3010) IV PRN (18:15)
[2016-11-01] MEDS ORDERED: PERCOCET 5MG/325MG TAB PO PRN ×3 (18:15→18:30)
[2016-11-01] MEDS: LR 1,000 ML IV SCH (18:18)
[2016-11-01] MEDS ORDERED: OXYTOCIN DRIP 30 UNITS in APPROPRIATE DILUENT 1 EA IV SCH (18:25)
[2016-11-01] MEDS ORDERED: MEASLES,MUMPS,RUBELLA VACCINE INJ (MMR-II) (90707) SC SCH (18:30)
[2016-11-01] MEDS ORDERED: RHOGAM 300 MCG (1500 IU) INJ (J2790) IM SCH (18:30)
[2016-11-01] MEDS: DOCUSATE SODIUM 100 MG CAP PO SCH (21:31)
[2016-11-01] MEDS: NALBUPHINE HCL 10 MG/ML AMP (J2300) IV PRN (21:57)
[2016-11-01] MEDS: KETOROLAC 30 MG/ML VIAL (J1885) IV SCH (23:13)
[2016-11-02] MEDS: LR 1,000 ML IV SCH ×2 (02:18→03:09)
[2016-11-02 02:56] VITALS: BP 110/61
[2016-11-02] MEDS: NALBUPHINE HCL 10 MG/ML AMP (J2300) IV PRN (03:19)
[2016-11-02] MEDS: KETOROLAC 30 MG/ML VIAL (J1885) IV SCH ×3 (04:58→17:03)
[2016-11-02 05:51] VITALS: BP 101/62
[2016-11-02] MEDS: PRENATAL VITAMIN TAB PO SCH (08:54)
[2016-11-02] MEDS: DOCUSATE SODIUM 100 MG CAP PO SCH ×2 (08:54→20:31)
[2016-11-02 09:51] LABS: MEAN CORPUSCULAR HEMOGLOBIN 29.9 pg (27.0-33.0); MEAN CORPUSCULAR HGB CONC 33.9 g/dl (32.0-36.5); MEAN CORPUSCULAR VOLUME 88.1 fl (80.0-96.0); RED CELL DISTRIBUTION WIDTH 14.2 % (11.5-14.5); WHITE BLOOD COUNT 8.8 K/mm3 (4.0-10.0)
[2016-11-02 10:00] VITALS: BP 119/64
[2016-11-02 14:00] VITALS: BP 101/59
[2016-11-02 17:57] VITALS: BP 125/76
[2016-11-02 22:26] VITALS: BP 127/77
[2016-11-03] MEDS: IBUPROFEN 800 MG TAB PO SCH ×2 (00:22→08:25)
[2016-11-03 06:30] VITALS: BP 124/82
[2016-11-03] MEDS ORDERED: medroxyPROGESTERone ACET IM SUSP 150 MG/ML VIAL (J1050) IM ONE (08:00)
[2016-11-03] MEDS: DOCUSATE SODIUM 100 MG CAP PO SCH (08:26)
[2016-11-03] MEDS: PRENATAL VITAMIN TAB PO SCH (08:26)
[2016-11-03 09:10] LABS: MEAN CORPUSCULAR HEMOGLOBIN 29.4 pg (27.0-33.0); MEAN CORPUSCULAR HGB CONC 33.4 g/dl (32.0-36.5); MEAN CORPUSCULAR VOLUME 87.8 fl (80.0-96.0); RED CELL DISTRIBUTION WIDTH 14.3 % (11.5-14.5); WHITE BLOOD COUNT 9.6 K/mm3 (4.0-10.0)
[2016-11-03] MEDS ORDERED: COLA100C3 PO (10:56)
[2016-11-03] MEDS ORDERED: OXYC1TAB23 PO (10:56)
[2016-11-03] MEDS ORDERED: IBUP-1114 PO (10:56)
== END 2016-11-03 17:00 | disposition home or self-care (01) | DRG 766 ==
LOC: M LDO 07:55 → M LDI 09:46 → M OBS 19:09
PROVIDERS: ADMIT Obstetrics & Gynecology; ATTEND Obstetrics & Gynecology
PROC: 10D00Z1 Extraction of Products of Conception, Low, Open Approach (ICD-10-PCS; principal; 2016-11-01 17:11)
DX: O34.211 Maternal care for low transverse scar from previous cesarean delivery (principal); Z3A.38 38 weeks gestation of pregnancy; O77.0 Labor and delivery complicated by meconium in amniotic fluid; O75.82 Onset (spontaneous) of labor after 37 completed weeks of gestation but before 39 completed weeks gestation, with delivery by (planned) cesarean section; O99.344 Other mental disorders complicating childbirth; F32.9 Major depressive disorder, single episode, unspecified; O24.419 Gestational diabetes mellitus in pregnancy, unspecified control; Z37.0 Single live birth

== ENCOUNTER 2016-11-10 23:10 | Emergency (ER) | payer OTHER ==
[~2016-11-10] VITALS: Ht 160 cm; Wt 78.8 kg
[~2016-11-10 23:10] MED LIST changes: +COLA100C5 PO; +IBUP-1114 PO; +OXYC1TAB23 PO
[2016-11-10 23:57] LABS: BASO % 0.4 % (0.0-1.0); EOS # 0.2 K/mm3 (0.0-0.50); EOS % 2.1 % (0.0-3.0); LARGE UNSTAINED CELL # 0.1 K/mm3 (0.0-0.4); LARGE UNSTAINED CELL % 1.3 % (0.0-4.0); LYMPH # 2.8 K/mm3 (1.5-6.5); LYMPH % 34.7 % (24.0-44.0); MEAN CORPUSCULAR HEMOGLOBIN 28.6 pg (27.0-33.0); MEAN CORPUSCULAR VOLUME 86.7 fl (80.0-96.0); MONO # 0.4 K/mm3 (0.0-0.8); MONO % 4.6 % (0.0-5.0); NEUTROPHILS # 4.5 K/mm3 (1.8-7.7); PLATELET COUNT, AUTOMATED 282 k/mm3 (150-450); RED CELL DISTRIBUTION WIDTH 14.8 % (11.5-14.5); WHITE BLOOD COUNT 7.8 K/mm3 (4.0-10.0)
[2016-11-11 00:16] LABS: ALBUMIN 3.2 GM/DL (3.2-5.2); ALBUMIN/GLOBULIN RATIO 0.71 (1.00-1.93); ALKALINE PHOSPHATASE 126 U/L (45-117); ALT/SGPT 59 U/L (12-78); AMYLASE 40 U/L (25-115); ANION GAP 8 MEQ/L (8-16); AST/SGOT 49 U/L (15-37); BILIRUBIN,DIRECT < 0.1 MG/DL (0.0-0.2); BILIRUBIN,TOTAL 0.3 MG/DL (0.2-1.0); BLOOD UREA NITROGEN 10 MG/DL (7-18); CALCIUM LEVEL 8.9 MG/DL (8.5-10.1); CARBON DIOXIDE LEVEL 21 MEQ/L (21-32); CHLORIDE LEVEL 110 MEQ/L (98-107); CREATININE FOR GFR 0.65 MG/DL (0.55-1.02); GLOMERULAR FILTRATION RATE > 60.0 (>60); GLUCOSE, FASTING 85 MG/DL (70-105); POTASSIUM SERUM 3.8 MEQ/L (3.5-5.1); SODIUM LEVEL 139 MEQ/L (136-145); TOTAL PROTEIN 7.7 GM/DL (6.4-8.2)
[2016-11-11] MEDS ORDERED: GASTROGRAFIN SOLUTION 30ML PO ONE (00:55)
[2016-11-11] MEDS ORDERED: GASTROGRAFIN SOLUTION 30ML (Q9963) PO ONE (01:25)
--- NOTE | 2016-11-11 02:50 | REPUSA ---
CLINICAL HISTORY: Abdominal pain. TECHNIQUE: Multiple axial, sagittal and coronal CT images were obtained through the abdomen and pelvi s without administration of IV contrast material. Patient ingested oral contrast. COMMENTS: The liver is of uniform attenuation without mass or defect. There is no intra or extrahepatic biliary ductal dilatation. The spleen is normal. The gallbladder is mildly thickened. The pancreas is of nor mal contour and attenuation characteristics. There is no evidence of adrenal mass. The kidneys are normal in size, shape and configuration. No renal or ureteral calculi are identified. There is no hydroureter or hydronephrosis. There is no evidence for appendicitis. There is no bowel wall thickening. No evidence for small or la rge bowel obstruction. There is no evidence of abdominal ascites or lymphadenopathy. There is no evidence of intrinsic or extrinsic bladder mass. There is no pelvic ascites or lymphadeno sergio. Diffuse thickening of the wall of the bladder. Surgical changes of the lower aspect of the rec tus abdominis muscles. Images of the lung bases show no evidence of pleural or parenchymal mass. There are no pleural effusi ons. The bony structures are free of lytic or blastic lesions. Multilevel degenerative changes are seen in volving the thoracolumbar spine. Scattered calcifications are seen involving the aorta and major branches compatible with atherosclero sis. Fat containing umbilical hernia without incarceration. IMPRESSION: Distended bladder. Please evaluate to exclude extension. There is thickening of the wall of the bladder. This is suspicious for mild cystitis. Surgical changes and edema of the lower aspect of the rectus abdominis muscles. No associated drainab le fluid collection. Thickened gallbladder wall. This can be further assessed by ultrasound exam if clinically needed. Thank you for your kind referral of this patient.
[2016-11-11 03:16] VITALS: BP 123/86
--- NOTE | 2016-11-11 07:10 | ED PDOC ---
Post-Departure Follow-Up radiology report faxed to Juan Pablo Tran Sarah MD Nov 11, 2016 07:10
[2017-03-15] MEDS ORDERED: IBUP-1022 PO (18:19)
== END 2016-11-11 03:20 | disposition home or self-care (01) ==
LOC: M ED 23:10
DX: O90.89 Other complications of the puerperium, not elsewhere classified (principal); G89.18 Other acute postprocedural pain; R19.09 Other intra-abdominal and pelvic swelling, mass and lump
CPT/HCPCS: 74176; 80048; 80076; 81001; 82150; 83690; 85025; 87086; 99283; Q9963

== ENCOUNTER 2016-11-19 19:42 | Emergency (ER) | payer OTHER ==
[~2016-11-19] VITALS: Ht 160 cm; Wt 75.7 kg
[2016-11-19 19:43] VITALS: BP 115/76
[2016-11-19] MEDS ORDERED: CEPHALEXIN 250 MG CAP PO ONE (20:30)
[2016-11-19] MEDS ORDERED: CEPH250T PO (20:38)
[2017-03-15] MEDS ORDERED: IBUP-1022 PO (18:19)
== END 2016-11-19 20:43 | disposition home or self-care (01) ==
LOC: M ED 19:42
DX: O86.0 Infection of obstetric surgical wound (principal); L03.311 Cellulitis of abdominal wall; R30.0 Dysuria; F17.210 Nicotine dependence, cigarettes, uncomplicated; Z79.899 Other long term (current) drug therapy

== ENCOUNTER → 2017-05-13 | Outpatient (REF) | payer OTHER | LOC: M SFHCLERA 15:18 | DX: J02.9 Acute pharyngitis, unspecified (principal) ==

== ENCOUNTER → 2017-08-04 | Outpatient (REF) | payer OTHER | LOC: M SFHCLERA 16:51 | DX: J02.9 Acute pharyngitis, unspecified (principal) ==

== ENCOUNTER 2017-08-30 00:11 | Emergency (ER) | payer OTHER ==
[2017-08-30] MEDS: ONDANSETRON 4 MG ORAL DISINTEGRATING TAB (S0181) PO (01:31)
[2017-08-30] MEDS: ACETAMINOPHEN 325 MG TAB PO (01:31)
== END 2017-08-30 02:35 | disposition home or self-care (01) ==
LOC: M ED 00:11
DX: S09.90XA Unspecified injury of head, initial encounter (principal); S06.0X0A Concussion without loss of consciousness, initial encounter; W19.XXXA Unspecified fall, initial encounter; Y92.410 Unspecified street and highway as the place of occurrence of the external cause; Y93.9 Activity, unspecified; Y99.9 Unspecified external cause status; Z79.899 Other long term (current) drug therapy
CPT/HCPCS: 70450

== ENCOUNTER → 2017-11-05 | Outpatient (REF) | payer OTHER | LOC: M SFHCLERA 09:39 | DX: R35.0 Frequency of micturition (principal); J02.9 Acute pharyngitis, unspecified | CPT/HCPCS: 87086 ==

== ENCOUNTER 2017-11-12 09:26 | Emergency (ER) | payer OTHER | END 2017-11-12 12:05 | disposition home or self-care (01) | LOC: M ED 09:26 | DX: J06.9 Acute upper respiratory infection, unspecified (principal); J30.9 Allergic rhinitis, unspecified; Z79.899 Other long term (current) drug therapy | CPT/HCPCS: 71046 ==